=== PATIENT | male | born 1955 | race Caucasian/White ===

== ENCOUNTER → 2017-02-28 | Outpatient (CLI) | payer BC ==
[~2017-02-28] MED LIST: ACET-1770 PO; ASPI-1116 PO; ATOR40TA64 PO; CARV12.5 PO; CLOP75TA PO; FURO40TA5 PO; HYDR-4009 PO; LEVO100T12 PO; LOSA50TA2 PO; MINO100C43 PO; NITR0.4T SL; POTA10CA37 PO; SPIR25TA PO
[2017-02-28 07:05] LABS: ANION GAP 14 MEQ/L (5-15); BUN/CREATININE RATIO 11 RATIO (6-26); CALCIUM 9.6 MG/DL (8.4-10.2); CHLORIDE 97 MEQ/L (98-107); CO2 - CARBON DIOXIDE 26 MEQ/L (22-30); CREATININE 0.8 MG/DL (0.8-1.5); GLOMERULAR FILTRATION RATE 99; GLUCOSE 101 MG/DL (75-110); MAGNESIUM 1.9 MG/DL (1.6-2.3); POTASSIUM 4.4 MEQ/L (3.6-5); SODIUM 137 MEQ/L (134-144)
== END ==
LOC: LAB 06:42
PROVIDERS: ATTEND Internal Medicine Cardiovascular Disease
DX: I25.810 Atherosclerosis of coronary artery bypass graft(s) without angina pectoris (principal)
CPT/HCPCS: 80048; 83735

== ENCOUNTER 2017-08-07 13:25 | Observation (INO) ==
[2017-08-07] MEDS ORDERED: MIDAZOLAM 2mg/2ml INJECTION IVP ONE (13:36)
[2017-08-07] MEDS ORDERED: FentaNYL 100 MCG/2 ML INJECTION IVP ONE (13:36)
--- OUTSIDE RECORDS SUMMARY | 2017-08-07 13:41 | External Medical Summary | Continuity of Care Document ---
:1955 Demographics Phone Unavailable Preferred Language Unknown Marital Status Unknown Taoist Affiliation Unknown Race Unknown Ethnic Group Unknown Author Organization [facility] Allergies Medications Problems Procedures Results Encounters ACCT No. Visit Discharge Status Pt. Type Provider Facility Loc./Unit Complaint Date/Time [id number] 11/15/2016 ACT Unknown 0113 09:37:00 [id number] 12/16/2014 ACT Unknown 0204 08:58:00 [id number] 11/29/2014 ACT Unknown 0107 08:24:00 [id number] 11/29/2014 ACT Unknown 0113 07:55:00 [id number] 11/29/2014 ACT Unknown 0122 07:44:00
--- OUTSIDE RECORDS SUMMARY | 2017-08-07 13:41 | External Medical Summary | CCD ---
:1955 Author Name WALLACE HOYOS Address [address] [place] [phone] Care Team Providers Name Role Phone POLA VALLE Attending Physician Unavailable Vital Signs Unknown or Not Available. Allergies Allergy Code Allergy Type Reaction Status No Known Allergies 0 No known allergies Active Procedures Unknown or Not Available. History of Immunizations Unknown or Not Available. Problems Unknown or Not Available. Results COMP METABOLIC - Collect Date/Time: 10/30/2016 15:45 Test Name Code Test Result Test Units Test Ref Range GLUCOSE 98 mg/dL L=70 H=110 BUN 10 mg/dL L=7 H=18 CREATININE 1.36 mg/dL L=0.60 H=1.30 AGE 60 YEARS GFR 53.6 L=60.0 H=120 SODIUM 135 mmol/L L=136 H=145 POTASSIUM 3.8 mmol/L L=3.5 H=5.1 CHLORIDE 98 mmol/L L=98 H=107 CO2 29 mmol/L L=21 H=32 CALCIUM 9.6 mg/dL L=8.5 H=10.1 AST 19 U/L L=15 H=37 ALT 33 U/L L=12 H=78 ALKALINE PHOS 112 U/L L=46 H=116 TOTAL PROTEIN 7.5 g/dL L=6.4 H=8.2 ALBUMIN 4.1 g/dL L=3.4 H=5.0 TOTAL BILI 0.40 mg/dL L=0.00 H=1.00 LIPID PANEL - Collect Date/Time: 10/30/2016 15:45 Test Name Code Test Result Test Units Test Ref Range CHOLESTEROL 175 mg/dL L=0 H=200 TRIGLYCERIDES 105 mg/dL L=30 H=150 HDL 70 mg/dL L=40 H=60 LDL, CALC 84 mg/dL L=0 H=100 VLDL 21 mg/dL L=0 H=40 CHOL/HDL RISK 2.5 RATIO L=0.0 H=5.0 PT FASTING: ? N/A THYROXINE (T4) FREE - Collect Date/Time: 10/30/2016 15:45 Test Name Code Test Result Test Units Test Ref Range FT4 1.20 ng/dL L=0.76 H=1.46 TSH - Collect Date/Time: 10/30/2016 15:45 Test Name Code Test Result Test Units Test Ref Range TSH 1.22 uIU/mL L=0.36 H=3.74 CBC W/ DIFF - Collect Date/Time: 10/30/2016 15:45 Test Name Code Test Result Test Units Test Ref Range WBC 7.6 x10^3 L=4.8 H=10.8 RBC 4.22 x10^6 L=4.70 H=6.10 HEMOGLOBIN 13.4 g/dL L=14.0 H=18.0 HEMATOCRIT 39.9 % L=42.0 H=52.0 MCV 95 fL L=80 H=100 MCH 31.8 pg L=27.0 H=33.0 MCHC 33.6 g/dL L=33.0 H=37.0 RDW 13.2 % L=11.5 H=14.5 PLATELETS 308 x10^3 L=150 H=450 MPV 7.9 fL L=7.8 H=11.0 NEUTROPHILS 55.9 % L=40.0 H=80.0 LYMPHOCYTES 28.0 % L=20.0 H=45.0 MONOCYTES 13.9 % L=0.0 H=10.0 EOSINOPHILS 1.1 % L=0.0 H=5.0 BASOPHILS 1.1 % L=0.0 H=2.0 REFLEX MAN DIFF NO N/A UA AUTO W/ MICRO - Collect Date/Time: 10/30/2016 15:50 Test Name Code Test Result Test Units Test Ref Range COLOR Yellow N/A NORMAL: Yellow APPEARANCE Clear N/A NORMAL: Clear GLUCOSE Negative N/A NORMAL: Negative BILIRUBIN Negative N/A NORMAL: Negative KETONE Negative N/A NORMAL: Negative SPEC GRAVITY 1.010 N/A NORMAL: 1.005-1.030 BLOOD Negative N/A NORMAL: Negative PROTEIN Negative N/A NORMAL: Negative PH 7.0 N/A NORMAL: 5.0-8.0 UROBILINOGEN 0.2 N/A NORMAL: Negative NITRITE Negative N/A NORMAL: Negative LEUKOCYTES Negative N/A NORMAL: Negative MICRO RBC 0-2 N/A NORMAL: 0-2 MICRO WBC 0-2 N/A NORMAL: 0-2 BACTERIA None Seen N/A NORMAL: None-Trace EPI CELLS 0-5 N/A NORMAL: 0-15 MUCUS None Seen N/A NORMAL: None-Small AMORPHOUS None Seen N/A NORMAL: None Seen YEAST None Seen N/A NORMAL: None Seen CRYSTALS None Seen N/A NORMAL: None Seen CAST None Seen N/A NORMAL: None Seen URINE CULTURE? NO N/A Active Medications Unknown or Not Available. Medications Administered During Visit Unknown or Not Available. Encounters Encounter Diagnosis Diagnosis Code Start Date Essential (primary) hypertension I10 10/30/2016 Social History Smoking Status Code Start Date End Date Current every day [id number] smoker Patient Decision Aids Unknown or Not Available. Discharge Instructions You were admitted to [facility] on 10/30/2016 15:50 with a principal diagnosis of Essential (primary) hypertension You had the following tests done: CBC W/ DIFF COMP METABOLIC LIPID PANEL THYROXINE (T4) FREE TSH UA AUTO W/ MICRO You were discharged from [facility] on 10/30/2016 15:50 Should you have any questions prior to discharge, please contact a member of your healthcare team. If you have left the hospital and have any questions, please contact your primary care physician. Chief Complaint and Reason For Visit Chief Complaint Date of Onset LAB Function Status Unknown or Not Available. Plan of Care Unknown or Not Available. Referral/Transition of Care Unknown or Not Available.
[2017-08-07] MEDS ORDERED: DiltiaZEM 25 MG/5 ML INJECTION IVP ONE (13:56)
[2017-08-07] MEDS ORDERED: DiltiaZEM Drip 125 MG in NS 125 ML IV SCH (14:00)
[2017-08-07 14:55] VITALS: BMI 40.6
[2017-08-07] MEDS ORDERED: FUROSEMIDE 20 MG/2 ML INJECTION IVP ONE (15:04)
[2017-08-07] MEDS ORDERED: DIGOXIN 500 MCG/2 ML INJECTION IVP ONE ×2 (15:05)
--- NOTE | 2017-08-07 15:37 | XRay Report ---
Indication: aflutter PROCEDURE: XR chest 1V: Encounter: Initial Comparison: April 19, 2015 Findings: There is increased opacity in the right lower lobe. Left lung is clear. No pneumothorax or pleural effusion. Cardiac silhouette remains enlarged but unchanged. Prior sternotomy changes and left cardiac pacemaker defibrillator. Pulmonary vascularity is slightly prominent. Impression: Mild pulmonary edema. Possible superimposed atelectasis or pneumonia in the right lower lobe. .
[2017-08-07] MEDS: SALINE FLUSH 10ml SYRINGE IV PRN ×2 (15:48→17:26)
[2017-08-07] MEDS ORDERED: ADENOSINE 6mg/2ml INJECTION IVP ONE (16:20)
[2017-08-07] MEDS ORDERED: AMIODARONE 150 MG in NS 100 ML IV ONE (16:32)
[2017-08-07] MEDS ORDERED: AMIODARONE 900 MG in NS 500ml 500 ML IV SCH ×2 (16:33→22:35)
[2017-08-07] MEDS ORDERED: DIPHENHYDRAMINE PO PRN (16:56)
[2017-08-07] MEDS ORDERED: ACETAMINOPHEN PO PRN (16:56)
[2017-08-07] MEDS: CARVEDILOL 25 MG PO SCH (18:02)
[2017-08-07] MEDS: POTASSIUM CHLORIDE 10 MEQ PO SCH (18:02)
--- NOTE | 2017-08-07 19:41 | Consult Note ---
Consult Information - Data of Consult Consult date: 08/07/17 Requesting Physician: Rinku Melo MD Primary Care Provider: Nilsa Stone APRN Family Provider: Nilsa Stone APRN - Consult Narrative Reason for consult: cough, possible asthma History of present illness: The patient is a very pleasant 61-year-old male with history of coronary artery disease, cardiomyopathy with AICD and history of paroxysmal A. fib. He denies being on any new medications. He states that he has had a cough for approximately 3 or 4 weeks which occasionally has some whitish phlegm. He denies any difficulty with swallowing fluid, food or pills. He has some mild rhinorrhea but it doesn't seem out of the ordinary. He denies any sinus pain. He does not feel like he has a cold currently. He did notice a worsening in his symptoms over the past 2 days with increased cough and development of chest tightness. He also had orthopnea and needed to sleep in a recliner last night and still could not sleep well because of chest tightness and cough. He did not notice any lower extremity edema. He went to Dr. Melo's office this morning for an echocardiogram and was found to be in A. fib with rapid ventricular response. He was admitted to CCU and treated with diltiazem, digoxin and amiodarone and has converted to sinus rhythm. He is anticoagulated on ask. He does not take an CARLYLE inhibitor. He denies any GERD. The patient denies fevers or chills. He states he has always had a lot of sweating but that is normal for him. He has not had any weight changes. He states that his cough is better since converting to a sinus rhythm. He denies any pleuritic chest pain. He denies shortness of breath. Chest x-ray was obtained and revealed possible atelectasis versus pneumonia I was consulted by Dr. Melo for prolonged cough and possible pneumonia FORMERLY [facility], [facility]1983 Patient Stated Medical History Cataracts Yes: not removed yet Angina Yes Cardiac Arrhythmia Yes Congestive Heart Failure Yes Coronary Artery Disease Yes Hypertension Yes Myocardial Infarction Yes Pneumonia Yes Sleep Apnea No Other Musculoskeletal Yes: reynauds Cellulitis Yes: brown recluse bites June 2017 Medical History Updates: Coronary artery disease. CABG 3. Cardiomyopathy with AICD. Hyperlipidemia. Hypertension. Cataracts Surgical History: CABG 3 vessels. AICD placement Family History: Father with cardiomyopathy and AICD placement. Father also has diabetes - Social History Smoking status: Current some day smoker (1 or 2 cigarettes a month) Alcohol intake: current Alcohol intake frequency: 3 or more drinks per day (2-3 beers a day) Review of Systems Review of systems: Comprehensive review of systems is negative other than the above in history of present illness Medications Home Medications Medication Instructions Recorded Confirmed Type Acetaminophen/Diphenhydramine 2 tab PO HS PRN #0 tab 12/06/14 08/07/17 History [Acetaminophen Pm Caplet] Atorvastatin Calcium 1 tab PO HS #0 tab 12/06/14 08/07/17 History Furosemide 1 tab PO BID #0 tab 12/06/14 08/07/17 History Potassium Chloride 10 meq PO BIDWM #0 cap 12/06/14 08/07/17 History Ascorbic Acid 500 mg PO DAILY 08/07/17 08/07/17 History Carvedilol [Coreg] 1 tab PO BIDWM 08/07/17 08/07/17 History Dabigatran [Pradaxa] 1 cap PO BID 08/07/17 08/07/17 History Ferrous Sulfate 325 mg PO DAILY 08/07/17 08/07/17 History Levothyroxine Tab [Synthroid] 1 tab PO ACB 08/07/17 08/07/17 History SACUBITRIL/VALSARTAN 49/51mg 1 tab PO BID 08/07/17 08/07/17 History [ENTRESTO 49/51mg] Allergies Allergy/AdvReac Type Severity Reaction Status Date / Time No Known Allergies Allergy Verified 08/07/17 14:30 Exam Vital Signs: Temperature 98.4 F 08/07/17 15:59 Pulse Rate 88 08/07/17 17:30 Respiratory Rate 37 H 08/07/17 17:30 Blood Pressure 106/55 08/07/17 17:30 Pulse Oximetry 97 08/07/17 17:30 Height/Weight/BMI: Height 1.57 m Weight 100.9 kg Body Mass Index 40.6 Comments: Afebrile, heart rate in the 140s initially and since conversion to sinus rhythm is in the 80s O2 sat currently 100% on room air. He did require supplemental oxygen at 2 L for a short period of time. Respiratory rate is in the 20s to 30s GEN-alert, oriented, no acute distress. Has a frequent dry sounding cough. During my visit, he never appeared to have productive phlegm. HEENT-sclera anicteric, pupils equal, oropharynx is moist NECK-supple CV-regular rate and rhythm CHEST-clear to auscultation bilaterally ABD-soft, nontender and nondistended with positive bowel sounds -no Chan EXT-no edema NEURO-no focal deficits SKIN-complexion is fred, no diaphoresis Results - Labs CBC & Chem 7: 08/07/17 14:24 08/07/17 14:24 Microbiology Results: Neutrophils 77%, lymphs 14% Liver enzymes normal. Troponin normal. TSH normal. - Impressions Chest x-ray on my read and per radiology reveals mild pulmonary edema. Possible superimposed atelectasis or pneumonia in the right lower lobe. Assessment and Plan DVT Prophylaxis: Pradaxa Assessment and Plan: Impression Cough of 3 weeks' duration worsened past few days while he is likely had A. fib with RVR and mild pulmonary edema Atelectasis versus infiltrate/pneumonia in right lower lobe. He has not had fevers, significant phlegm, or pleuritic pain. Mild leukocytosis, possibly stress reaction with his A. fib with RVR A. fib with RVR, converted to sinus rhythm Tobaccoism (only 1 or 2 cigarettes a month) Coronary artery disease Old records show diabetes, but the patient denies being diabetic and blood sugars are normal Plan At this time, would monitor the patient off of antibiotics. Recheck CBC with manual differential tomorrow. See if symptoms improve with diuresis. Check a PA and lateral chest x-ray in the morning.. If the patient is febrile or has increased white count or worsening cough, would likely start antibiotics then. We'll obtain a sputum culture and viral respiratory panel. Check a pro-calcitonin in the morning. Check urine for strep pneumo and Legionella. Start use of incentive spirometer. Agree with diuresis. Start Tessalon Perles and guaifenesin for cough. Add steroid nasal spray. Tobacco cessation education. We'll follow along with you. Thank you for the consultation Hospital Course Summary Disclaimer: The visit summary below is not to be considered part of the above Progress Note.
[2017-08-07] MEDS ORDERED: ATORVASTATIN 40 MG PO SCH (21:00)
[2017-08-07] MEDS: FLUTICASONE NASAL SPRAY 50mcg EA NOSTRIL SCH (21:10)
[2017-08-07] MEDS: GUAIFENESIN LA 600 MG TABLET PO SCH (21:10)
[2017-08-07] MEDS: BENZONATATE 200 MG CAPSULE PO PRN (21:10)
[2017-08-07] MEDS: VALSARTAN PO SCH (21:13)
[2017-08-07] MEDS: DABIGATRAN 150 MG PO SCH (21:13)
[2017-08-07] MEDS: SACUBITRIL PO SCH (21:13)
[2017-08-07] MEDS: FUROSEMIDE 40 MG/4 ML INJECTION IVP SCH (21:16)
[2017-08-08] MEDS: FUROSEMIDE 40 MG/4 ML INJECTION IVP SCH ×2 (02:09→08:34)
[2017-08-08] MEDS ORDERED: **POM**LEVOTHYROXINE 100 MCG TABLET PO SCH (06:30)
[2017-08-08] MEDS ORDERED: FERROUS SULFATE 325 MG PO SCH (08:00)
--- NOTE | 2017-08-08 08:21 | Progress Note ---
Subjective: The patient states he is feeling better today. He states his breathing is better and his cough is much improved although not gone. He states he did have abdominal fullness yesterday but that is better today. He states he was able to lie almost flat last night and slept very well. He has not had a fever. He did have almost 6 L urine output since admission. Objective Vital signs: Temperature 97.1 F 08/08/17 04:40 Pulse Rate 73 08/08/17 07:00 Respiratory Rate 19 08/08/17 07:00 Blood Pressure 119/66 08/08/17 07:00 Pulse Oximetry 99 08/08/17 07:00 Height/Weight/BMI: Height 1.57 m Weight 100.9 kg Body Mass Index 40.6 Comments: I&O is -5 L GEN-alert, oriented, no acute distress. The patient does not cough at all while I'm in the room except once when I ask him to take a deep breath to examine his lungs. CV-regular rate and rhythm CHEST-clear to auscultation bilaterally, deep breath causes very minimal coughing today compared to last night ABD-soft, nontender with positive bowel sounds -no Chan EXT-no edema NEURO-no focal deficits Results - Labs CBC & Chem 7: 08/08/17 04:42 08/08/17 04:42 Labs: Bands 0 neutrophils 73% Viral respiratory panel was negative Microbiology Results: Microbiology 08/07/17 20:14 Sputum, Expectorated Sputum Culture - Preliminary Culture Initiated - Results Pending - Impressions Chest x-ray on my read shows decreased pulmonary edema and decrease in the size of the infiltrate versus atelectasis in the right lower lobe. Official report is pending. Assessment and Plan Assessment and Plan: 08/08/2017 Impression Cough of 3 weeks' duration worsened past few days while he has likely had A. fib with RVR and mild pulmonary edema Atelectasis versus infiltrate/pneumonia in right lower lobe. He has not had fevers, significant phlegm, or pleuritic pain. Chest x-ray improved today with diuresis. No antibiotics were initiated. Mild leukocytosis, possibly stress reaction with his A. fib with RVR-resolved ( no antibiotics) A. fib with RVR, converted to sinus rhythm Tobaccoism (only 1 or 2 cigarettes a month) Coronary artery disease Old records show diabetes, but the patient denies being diabetic and blood sugars are normal Plan Overall, the patient is feeling much better. On my read chest x-ray is improved. Radiology interpretation is pending. White count has normalized without antibiotics. Cough is markedly improved. I think most of his cough was likely secondary to pulmonary edema. I will have him remain off of antibiotics at this time. If he is discharged today, he could continue the nasal steroid spray and when necessary Tessalon Perles if he thinks these are helpful for the short-term. If cough is not improving, or gets worse, he should follow-up with his primary care provider. Hospital Course Summary Disclaimer: The visit summary below is not to be considered part of the above Progress Note.
[2017-08-08] MEDS: CARVEDILOL 25 MG PO SCH (08:31)
[2017-08-08] MEDS: POTASSIUM CHLORIDE 10 MEQ PO SCH (08:32)
[2017-08-08] MEDS: DABIGATRAN 150 MG PO SCH (08:33)
[2017-08-08] MEDS: FLUTICASONE NASAL SPRAY 50mcg EA NOSTRIL SCH (08:34)
[2017-08-08] MEDS: VALSARTAN PO SCH (08:38)
[2017-08-08] MEDS: SACUBITRIL PO SCH (08:38)
--- NOTE | 2017-08-08 08:45 | XRay Report ---
INDICATION: cough, possible pneumonia vs atelectasis PROCEDURE: CHEST 2-VIEWS UPRIGHT (PA & LAT) Encounter: Initial COMPARISON: August 07, 2017 FINDINGS: Aeration of the right lung has improved. No consolidative pneumonia. No pleural effusion or pneumothorax. Chronic interstitial markings in the left base. Heart size and mediastinal contours are stable. Left pacemaker defibrillator. Prior CABG. Impression: No acute cardiopulmonary disease. .
[2017-08-08] MEDS ORDERED: ASCORBIC ACID 500 MG PO SCH (09:00)
[2017-08-08] MEDS ORDERED: NON-FORMULARY MEDICATION 1 EACH EACH (Ferrous Sulfate [Ferrous Sulfate] 325 MG) PO SCH (09:00)
[2017-08-08] MEDS ORDERED: SPIRONOLACTONE 25 MG PO SCH (09:00)
[2017-08-08] MEDS: GUAIFENESIN LA 600 MG TABLET PO SCH (09:34)
[2017-08-08] MEDS: BENZONATATE 200 MG CAPSULE PO PRN (09:34)
[2017-08-08 12:35] VITALS: PULSE 70; TEMP 98
[2017-08-08] MEDS ORDERED: AMIODARONE 200 MG TABLET PO SCH (12:45)
[2017-08-08 13:12] VITALS: BP 91/53; RESP 20; O2SAT 97
--- NOTE | 2017-08-08 13:14 | Discharge Summary ---
<Radha Power M - Last Filed: 08/08/17 13:35> Discharge Information Date of admission: 08/07/17 13:35 Anticipated date of discharge: 08/08/17 Attending Physician: Rinku Melo MD Primary care physician: Nilsa Stone APRN Consults: 08/07/17 16:58 Physician Consult [CONS] Routine Consulting Provider: Petra Judd Reason For Exam: pneumonia Ordering Provider has Notified Geographic Information System Analyst: Yes - Laboratory Labs: 08/08/17 04:42 08/08/17 04:42 Laboratory Results - last 48 hr 08/07/17 08/07/17 08/07/17 14:24 14:24 20:53 WBC 12.5 H RBC 3.72 L Hgb 12.2 L Hct 36.1 L MCV 97.0 MCH 32.8 MCHC 33.8 RDW Std Deviation 43.1 Plt Count 287 MPV 10.6 Immature Gran % (Auto) 0.4 Neut % (Auto) 77.1 H Lymph % (Auto) 14.1 L [place] % (Auto) 8.0 Eos % (Auto) 0.2 Baso % (Auto) 0.2 Neut # (Auto) 9.7 H Lymph # (Auto) 1.8 [place] # (Auto) 1.0 H Eos # (Auto) 0.0 Baso # (Auto) 0.0 Abs Immat Gran (auto) 0.05 H Neutrophils % (Manual) Lymphocytes % (Manual) Monocytes % (Manual) Neutrophils # (Manual) Lymphocytes # (Manual) Monocytes # (Manual) RBC Morph Comment Turbidity < 20 Sodium 136 Potassium 4.4 Chloride 102 Carbon Dioxide 22 Anion Gap 12 BUN 13.0 Creatinine 0.7 L GFR Calculation 115 BUN/Creatinine Ratio 19 Glucose 92 Calculated Osmolality 262 Calcium 9.9 Magnesium 1.8 Total Bilirubin 0.60 Icterus Index < 2 AST 38 ALT 54 Alkaline Phosphatase 95 Troponin I 0.063 Total Protein 7.0 Albumin 4.2 Globulin 2.8 Albumin/Globulin Ratio 1.5 TSH 1.73 Specimen Hemolysis < 15 Adenovirus (PCR) Negative B.parapertussis DNA PCR Negative C. pneumoniae DNA (PCR) Negative Coronavirus OC43 (PCR) Negative Coronavirus HKU1 (PCR) Negative Coronavirus 229E (PCR) Negative Coronavirus NL63 (PCR) Negative Human Metapneumovir PCR Negative Influenza Type A (PCR) Negative Influenza Type B (PCR) Negative M. pneumoniae (PCR) Negative Parainfluenza 1 (PCR) Negative Parainfluenza 2 (PCR) Negative Parainfluenza 3 (PCR) Negative Parainfluenza 4 (PCR) Negative RSV (PCR) Negative Entero/Rhino (PCR) Negative 08/08/17 08/08/17 08/08/17 04:42 04:42 06:45 WBC 8.6 RBC 3.83 L Hgb 12.6 L Hct 37.3 L MCV 97.4 MCH 32.9 MCHC 33.8 RDW Std Deviation 44.4 Plt Count 273 MPV 10.5 Immature Gran % (Auto) Neut % (Auto) Lymph % (Auto) [place] % (Auto) Eos % (Auto) Baso % (Auto) Neut # (Auto) Lymph # (Auto) [place] # (Auto) Eos # (Auto) Baso # (Auto) Abs Immat Gran (auto) Neutrophils % (Manual) 73.0 H Lymphocytes % (Manual) 19.0 L Monocytes % (Manual) 8.0 Neutrophils # (Manual) 6.3 Lymphocytes # (Manual) 1.6 Monocytes # (Manual) 0.7 RBC Morph Comment Normal Turbidity < 20 Sodium 138 Potassium 3.5 L D Chloride 97 L Carbon Dioxide 30 D Anion Gap 11 BUN 13.0 Creatinine 0.9 D GFR Calculation 86 BUN/Creatinine Ratio 14 Glucose 98 Calculated Osmolality 266 Calcium 9.6 Magnesium 1.8 Total Bilirubin Icterus Index < 2 AST ALT Alkaline Phosphatase Troponin I Total Protein Albumin Globulin Albumin/Globulin Ratio TSH Specimen Hemolysis < 15 Adenovirus (PCR) B.parapertussis DNA PCR C. pneumoniae DNA (PCR) Coronavirus OC43 (PCR) Coronavirus HKU1 (PCR) Coronavirus 229E (PCR) Coronavirus NL63 (PCR) Human Metapneumovir PCR Influenza Type A (PCR) Influenza Type B (PCR) M. pneumoniae (PCR) Parainfluenza 1 (PCR) Parainfluenza 2 (PCR) Parainfluenza 3 (PCR) Parainfluenza 4 (PCR) RSV (PCR) Entero/Rhino (PCR) - Microbiology Microbiology 08/07/17 20:14 Sputum, Expectorated Gram Stain - Final 08/07/17 20:14 Sputum, Expectorated Sputum Culture - Preliminary Culture Initiated - Results Pending - Radiology Radiology: Date of Exam: 08/08/17 Ordering Provider: Petra Judd MD Type of Exam(s): XR chest 2V Reason for Exam(s): cough, possible pneumonia vs atelectasis INDICATION: cough, possible pneumonia vs atelectasis PROCEDURE: CHEST 2-VIEWS UPRIGHT (PA & LAT) Encounter: Initial COMPARISON: August 07, 2017 FINDINGS: Aeration of the right lung has improved. No consolidative pneumonia. No pleural effusion or pneumothorax. Chronic interstitial markings in the left base. Heart size and mediastinal contours are stable. Left pacemaker defibrillator. Prior CABG. Impression: No acute cardiopulmonary disease. Date of Exam: 08/07/17 Ordering Provider: Radha Power APRN Type of Exam(s): XR chest 1V Reason for Exam(s): aflutter Indication: aflutter PROCEDURE: XR chest 1V: Encounter: Initial Comparison: April 19, 2015 Findings: There is increased opacity in the right lower lobe. Left lung is clear. No pneumothorax or pleural effusion. Cardiac silhouette remains enlarged but unchanged. Prior sternotomy changes and left cardiac pacemaker defibrillator. Pulmonary vascularity is slightly prominent. Impression: Mild pulmonary edema. Possible superimposed atelectasis or pneumonia in the right lower lobe. History of Present Illness HPI: Trip is a 61 year old male who is well known to Dr. Melo with a history of dilated cardiomyopathy, acute on chronic systolic heart failure, paroxysmal atrial fibrillation, non-rheumatic mitral valve insufficiency, CAD with CABG, HTN and HLD who was seen in clinic yesterday and reported cough lasting the last 4 weeks, exertional dyspnea, orthopnea and fatigue and was found to be in Atrial Flutter, rate 130. He was admitted to CCU for DCCV and AAT, as well as diuresis for acute on chronic systolic heart failure. He is currently taking Pradaxa 150mg BID. Hospital Course This is a general summary of the patient's hospital course. For more details refer to the complete medical record. Hospital course: Patient was given adenosine 12mg to slow rate for rhythm verification, informed consent for DCCV and self converted before sedation was given. He was started on Amiodarone IV bolus and drip and later changed to oral amiodarone. Time spent with patient: 25 - 35 minutes DVT Prophylaxis: Pradaxa Exam Vital signs: Temperature 98.0 F 08/08/17 11:00 Pulse Rate 70 08/08/17 11:00 Respiratory Rate 21 08/08/17 11:00 Blood Pressure 95/58 08/08/17 11:00 Pulse Oximetry 99 08/08/17 11:00 - Constitutional no acute distress Results 08/08/17 04:42 08/08/17 04:42 Cardiac Enzymes 08/07/17 Range/Units 14:24 AST 38 (17-59) U/L Troponin I 0.063 (0-0.12) ng/ml CBC 08/07/17 08/08/17 Range/Units 14:24 04:42 WBC 12.5 H 8.6 (4.5-11.0) T/MM3 RBC 3.72 L 3.83 L (4.50-5.90) M/MM3 Hgb 12.2 L 12.6 L (13.5-17.5) GM/DL Hct 36.1 L 37.3 L (41-53) % Plt Count 287 273 (130-400) T/MM3 Neut # (Auto) 9.7 H (1.8-7.7) T/MM3 Lymph # (Auto) 1.8 (1-4.8) T/MM3 [place] # (Auto) 1.0 H (0-0.8) T/MM3 Eos # (Auto) 0.0 (0-0.5) T/MM3 Baso # (Auto) 0.0 (0-0.2) T/MM3 Comprehensive Metabolic Panel 08/07/17 08/08/17 Range/Units 14:24 04:42 Sodium 136 138 (134-144) MEQ/L Potassium 4.4 3.5 L D (3.6-5) MEQ/L Chloride 102 97 L (98-107) MEQ/L Carbon Dioxide 22 30 D (22-30) MEQ/L BUN 13.0 13.0 (9-20) MG/DL Creatinine 0.7 L 0.9 D (0.8-1.5) MG/DL Glucose 92 98 (75-110) MG/DL Calcium 9.9 9.6 (8.4-10.2) MG/DL AST 38 (17-59) U/L ALT 54 (21-72) U/L Alkaline Phosphatase 95 (38-126) U/L Total Protein 7.0 (6.3-8.2) G/DL Albumin 4.2 (3.5-5.0) G/DL Intake and Output 08/07/17 08/08/17 08/08/17 22:59 06:59 14:59 Intake Total 587.25 / 587.25 204.424 / 204.424 310 / 310 Output Total 4325 / 4325 1550 / 1550 550 / 550 Balance -3737.75 / -3737.75 -1345.576 / -1345.576 -240 / -240 Intake: IV 227.25 / 227.25 204.424 / 204.424 Amiodarone 150 mg In Ns 103 / 103 100 ml @ 618 mls/hr IV O ONE Rx#:[id number] Amiodarone 900 mg In NS 204.424 / 204.424 500ml 500 ml @ 1 MG/MIN 33.33 mls/hr IV .Q15H1M DAILY Rx#:[id number] DiltiaZEM Drip 125 mg In 124.25 / 124.25 Ns 125 ml @ 0 mls/hr IV . Q0M DAILY Rx#:[id number] Oral 360 / 360 310 / 310 Output: Urine 4325 / 4325 1550 / 1550 550 / 550 Other: Urine Appearance Clear Clear Urine Color Yellow Yellow Stool Consistency Liquid Size of Bowel Movement Moderate # Bowel Movements 1 Discharge Plan - Med Rec/Dispo Referrals/Follow Up: Rinku Melo MD [Physician] - 09/04/17 9:50 am [facility] Instructions: [facility] Congestive Heart Failure, A-fib (Atrial Fibrillation) (DC) Prescriptions: New Amiodarone [Pacerone] 200 mg PO DAILY #30 tab Continue Spironolactone [Aldactone] 25 mg PO DAILY #30 tab SACUBITRIL/VALSARTAN 49/51mg [ENTRESTO 49/51mg] 1 tab PO BID Carvedilol [Coreg] 1 tab PO BIDWM Ascorbic Acid 500 mg PO DAILY Atorvastatin Calcium 1 tab PO HS #0 tab Potassium Chloride 10 meq PO BIDWM #0 cap Furosemide 1 tab PO BID #0 tab Acetaminophen/Diphenhydramine [Acetaminophen Pm Caplet] 2 tab PO HS PRN #0 tab PRN Reason: INSOMNIA Levothyroxine Tab [Synthroid] 1 tab PO ACB Dabigatran [Pradaxa] 1 cap PO BID Ferrous Sulfate 325 mg PO DAILY - Disposition 01 Discharged Home, Self-Care <MarshaaditiRinku - Last Filed: 08/11/17 13:26> Discharge Information Date of admission: 08/07/17 13:35 Attending Physician: Rinku Melo MD Primary care physician: Nilsa Stone APRN Consults: 08/07/17 16:58 Physician Consult [CONS] Routine Consulting Provider: Petra Judd Reason For Exam: pneumonia Ordering Provider has Notified Geographic Information System Analyst: Yes - Laboratory Labs: 08/08/17 04:42 08/08/17 04:42 - Microbiology Microbiology 08/07/17 20:14 Sputum, Expectorated Gram Stain - Final 08/07/17 20:14 Sputum, Expectorated Sputum Culture - Final Normal Respiratory Mellissa Present 08/07/17 21:40 Urine Legionella Urinary Antigen - Final 08/07/17 21:40 Urine Streptococcus pneumoniae Antigen (M - Final Hospital Course This is a general summary of the patient's hospital course. For more details refer to the complete medical record. Exam Vital signs: Temperature 98.0 F 08/08/17 11:00 Pulse Rate 70 08/08/17 13:00 Respiratory Rate 20 08/08/17 13:00 Blood Pressure 91/53 08/08/17 13:00 Pulse Oximetry 97 08/08/17 13:00 Results 08/08/17 04:42 08/08/17 04:42 Discharge Plan - Med Rec/Dispo - Attestation Attestation Narrative: 08/11/17 13:26 Recommendation After examining the patient I agree with the above assessment. I am involved in the formulation of the patient's plan of care.
== END 2017-08-08 14:20 | disposition home or self-care (01) ==
LOC: CCU
PROVIDERS: ADMIT Internal Medicine Cardiovascular Disease; ATTEND Internal Medicine Cardiovascular Disease

== ENCOUNTER 2017-08-23 20:56 | Inpatient (IN) ==
--- NOTE | 2017-08-23 21:21 | Emergency Department Report ---
Cardiac General HPI - General Chief Complaint: Dizziness <Margarita Stone - 08/23/17 21:21> Stated Complaint: Defibrillator went off <Margarita Stone - 08/23/17 21:21> Time Seen by Provider: 08/23/17 21:21 <Margarita Stone - 08/23/17 21:21> Source: patient <Margarita Stone - 08/23/17 21:42> Mode of arrival: ambulatory <Margarita Stone - 08/23/17 21:42> Limitations: no limitations <Margarita Stone - 08/23/17 21:42> - History of Present Illness HPI narrative: 61 YO M presents to ED with complaint of defibrillator going off at home this evening around 8pm. Patient says prior to defibrillator going off patient says he felt light he might pass out and was SOA. Patient says that he feels fine now. Denies any associated CP, nausea or diaphoresis. Patient says that he thinks the defibrillator went off this morning and also on . Patient's drawer waxer is Dr. Melo. <Margarita Stone - 08/23/17 21:42> Occurred At: home <Margarita Stone - 08/23/17 21:42> - Related Data Home Medications Medication Instructions Recorded Confirmed Acetaminophen/Diphenhydramine 2 tab PO HS PRN #0 tab 12/06/14 08/24/17 [Acetaminophen Pm Caplet] Atorvastatin Calcium 1 tab PO HS #0 tab 12/06/14 08/24/17 Furosemide 1 tab PO BID #0 tab 12/06/14 08/24/17 Potassium Chloride 10 meq PO BIDWM #0 cap 12/06/14 08/24/17 Ascorbic Acid 500 mg PO DAILY 08/07/17 08/24/17 Carvedilol [Coreg] 1 tab PO BIDWM 08/07/17 08/24/17 Dabigatran [Pradaxa] 1 cap PO BID 08/07/17 08/24/17 Ferrous Sulfate 325 mg PO DAILY 08/07/17 08/24/17 Levothyroxine Tab [Synthroid] 1 tab PO ACB 08/07/17 08/24/17 SACUBITRIL/VALSARTAN 49/51mg 1 tab PO BID 08/07/17 08/24/17 [ENTRESTO 49/51mg] Previous Rx's Medication Instructions Recorded Spironolactone [Aldactone] 25 mg PO DAILY #30 tab 12/09/14 Amiodarone [Pacerone] 200 mg PO DAILY #30 tab 08/08/17 <Margarita Stone - 08/23/17 21:21> Allergies Allergy/AdvReac Type Severity Reaction Status Date / Time No Known Allergies Allergy Verified 08/23/17 21:04 <Margarita Stone - 08/23/17 21:21> Review of Systems All systems: reviewed and negative except as stated <Margarita Stone - 21:42> Constitutional: Reports: as per HPI, other (felt like he might pass out) < Margarita Stone 08/23/17 21:42> Respiratory: Reports: as per HPI, dyspnea <Margarita Stone 08/23/17 21:42> [facility] Patient Stated Medical History Cataracts Yes: not removed yet Angina Yes Cardiac Arrhythmia Yes Congestive Heart Failure Yes Coronary Artery Disease Yes Hypertension Yes Myocardial Infarction Yes Pneumonia Yes Sleep Apnea No Other Musculoskeletal Yes: reynauds Cellulitis Yes: brown recluse bites June 2017 Ischemic cardiomyopathy <Margarita Stone 08/24/17 18:39> Medical History Updates: Coronary artery disease. CABG 3. Cardiomyopathy with AICD. Hyperlipidemia. Hypertension. Cataracts <Margarita Stone 21:21> Surgical History: CABG 3 vessels. AICD placement <Margarita Stone 21:21> - Social History Smoking status: Current some day smoker (1 or 2 cigarettes a month) <Margarita Stone 08/23/17 21:21> Household members: spouse <Margarita Stone 08/23/17 21:42> Physical Exam - Limitations Limitations: no limitations <aMrgarita Stone 08/23/17 21:42> - General General appearance: alert, in no apparent distress <Margarita Stone 21:42> - Normal Exams: Head:: Normocephalic without trauma <Margarita Stone 08/23/17 21:42> Eyes:: No scleral icterus, irritation <Margarita Stone 08/23/17 21:42> ENMT:: No facial trauma, nasal exudates <Margarita Stone - 08/23/17 21:42> Chest/Respirations:: Clear all javier, with good airflow, and symmetry bilaterally <Margarita Stone - 08/23/17 21:42> Cardiovascular:: Regular rate and rhythm <Margarita Stone - 08/23/17 22:25> Musculoskeletal:: No tenderness, or deformity noted, good range of motion, all extremities <Margarita Stone 08/23/17 22:25> Integumentary:: No rashes <Margarita Stone 08/23/17 22:25> Neurological:: Patient is alert, and oriented, motor/sensory/cerebellar, exams w /o gross deficits, to observation <Margarita Stone 08/23/17 22:25> Psychiatric:: Patient exhibits, appropriate attention, emotion and affect < Margarita Stone 08/23/17 22:25> - Neck Neck exam: Present: trachea midline <Margarita Stone 08/23/17 22:25> Course - Consultations Consultation #1: I discussed patient's HPI, EKG and report from [employer] that defibrillator has gone off 3 times since early on the . Dr. Melo would like patient admitted on Amiodarone drip. <Margarita Stone - 08/23/17 22:25> Consultation #2: [employer] claim representative discussed interrogation of patient defibrillator. Patient did have a paced tachyarrhythmia 3 different time since early 08-24. Last episode 8pm tonight. <Margarita Stone - 08/24/17 18:39> Vital Signs Temperature 97.6 F 08/23/17 21:00 Pulse Rate 82 08/23/17 21:00 Respiratory Rate 18 08/23/17 21:00 Blood Pressure 136/70 08/23/17 21:00 Pulse Oximetry 96 08/23/17 21:00 Temperature 98.5 F 08/24/17 15:46 Pulse Rate 64 08/24/17 13:00 Respiratory Rate 20 08/24/17 13:00 Blood Pressure 123/74 08/24/17 13:00 Pulse Oximetry 98 08/24/17 13:00 <Graham Baker - 08/23/17 21:26> Vital Signs Temperature 97.6 F 08/23/17 21:00 Pulse Rate 82 08/23/17 21:00 Respiratory Rate 18 08/23/17 21:00 Blood Pressure 136/70 08/23/17 21:00 Pulse Oximetry 96 08/23/17 21:00 Temperature 98.5 F 08/24/17 15:46 Pulse Rate 64 08/24/17 13:00 Respiratory Rate 20 08/24/17 13:00 Blood Pressure 123/74 08/24/17 13:00 Pulse Oximetry 98 08/24/17 13:00 <Margarita Stone - 08/23/17 21:42> Cardiac General - [facility] Narrative Medical decision making narrative: Labs are unremarkable. Patient appears to have had defibrillator go off 3 more times in ED indicating a ventricular tachycardia. I discussed conversation I had with Dr. Melo with patient, and need for admission. <Margarita Stone - 08/24/17 18:39> - Differential Diagnosis Differential diagnosis: Likely: palpitations, sinus tachycardia, artial fibrillation, ventricular premature beats, supraventricular tachycardia, ventricular tachycardia <Margarita Stone - 08/23/17 22:25> - Medical Records Attestation: I reviewed the patient's medical records. <Margarita Stone - 22:25> - Lab Data Attestation: I reviewed the patient's lab results. <Margarita Stone - 18:05> Result diagrams: 08/24/17 04:01 08/24/17 04:01 <Margarita Stone - 08/23/17 21:21> Lab Results 08/23/17 08/23/17 Range/Units 22:15 22:15 WBC 8.8 (4.5-11.0) T/MM3 RBC 4.04 L (4.50-5.90) M/MM3 Hgb 13.4 L (13.5-17.5) GM/DL Hct 39.2 L (41-53) % MCV 97.0 (80-100) UM3 MCH 33.2 (26-34) UUG MCHC 34.2 (31-37) GM/DL RDW Std Deviation 44.4 (36.9-50.2) FL Plt Count 310 (130-400) T/MM3 MPV 10.0 (9.4-12.4) UM3 Immature Gran % (Auto) 0.2 (0.0-0.5) % Neut % (Auto) 68.9 H (33-66) % Lymph % (Auto) 23.2 (23-45) % [place] % (Auto) 6.6 (0-9.0) % Eos % (Auto) 0.9 (0-4) % Baso % (Auto) 0.2 (0-2) % Neut # (Auto) 6.1 (1.8-7.7) T/MM3 Lymph # (Auto) 2.1 (1-4.8) T/MM3 [place] # (Auto) 0.6 (0-0.8) T/MM3 Eos # (Auto) 0.1 (0-0.5) T/MM3 Baso # (Auto) 0.0 (0-0.2) T/MM3 Abs Immat Gran (auto) 0.02 (0.00-0.03) T/MM3 Turbidity < 20 (0-20) Sodium 140 (134-144) MEQ/L Potassium 3.6 (3.6-5) MEQ/L Chloride 104 (98-107) MEQ/L Carbon Dioxide 22 (22-30) MEQ/L Anion Gap 14 (5-15) MEQ/L BUN 12.0 (9-20) MG/DL Creatinine 0.8 (0.8-1.5) MG/DL GFR Calculation 99 BUN/Creatinine Ratio 15 (6-26) RATIO Glucose 96 (75-110) MG/DL Calculated Osmolality 269 (261-280) MOSM/KG Calcium 9.2 (8.4-10.2) MG/DL Magnesium 1.9 (1.6-2.3) MG/DL Icterus Index < 2 (0-7) Troponin I 0.015 (0-0.12) ng/ml B-Natriuretic Peptide 616 H (0-175) pg/mL Specimen Hemolysis < 15 (0-25) <MarchGraham M - 08/23/17 21:26> Lab Results 08/23/17 08/23/17 Range/Units 22:15 22:15 WBC 8.8 (4.5-11.0) T/MM3 RBC 4.04 L (4.50-5.90) M/MM3 Hgb 13.4 L (13.5-17.5) GM/DL Hct 39.2 L (41-53) % MCV 97.0 (80-100) UM3 MCH 33.2 (26-34) UUG MCHC 34.2 (31-37) GM/DL RDW Std Deviation 44.4 (36.9-50.2) FL Plt Count 310 (130-400) T/MM3 MPV 10.0 (9.4-12.4) UM3 Immature Gran % (Auto) 0.2 (0.0-0.5) % Neut % (Auto) 68.9 H (33-66) % Lymph % (Auto) 23.2 (23-45) % [place] % (Auto) 6.6 (0-9.0) % Eos % (Auto) 0.9 (0-4) % Baso % (Auto) 0.2 (0-2) % Neut # (Auto) 6.1 (1.8-7.7) T/MM3 Lymph # (Auto) 2.1 (1-4.8) T/MM3 [place] # (Auto) 0.6 (0-0.8) T/MM3 Eos # (Auto) 0.1 (0-0.5) T/MM3 Baso # (Auto) 0.0 (0-0.2) T/MM3 Abs Immat Gran (auto) 0.02 (0.00-0.03) T/MM3 Turbidity < 20 (0-20) Sodium 140 (134-144) MEQ/L Potassium 3.6 (3.6-5) MEQ/L Chloride 104 (98-107) MEQ/L Carbon Dioxide 22 (22-30) MEQ/L Anion Gap 14 (5-15) MEQ/L BUN 12.0 (9-20) MG/DL Creatinine 0.8 (0.8-1.5) MG/DL GFR Calculation 99 BUN/Creatinine Ratio 15 (6-26) RATIO Glucose 96 (75-110) MG/DL Calculated Osmolality 269 (261-280) MOSM/KG Calcium 9.2 (8.4-10.2) MG/DL Magnesium 1.9 (1.6-2.3) MG/DL Icterus Index < 2 (0-7) Troponin I 0.015 (0-0.12) ng/ml B-Natriuretic Peptide 616 H (0-175) pg/mL Specimen Hemolysis < 15 (0-25) <Margarita Stone 08/23/17 21:42> - EKG Data EKG #1 EKG attestation: Yes: I reviewed and interpreted this EKG. <March,[facility] 21:28> Rhythm: other (Paced) <[facility] 08/23/17 21:28> When compared to previous EKG there are: changes noted (Every beat is paced.) <March,[facility] 08/23/17 21:28> Critical Care Time Critical Care Time: Yes <Margarita Stone 08/24/17 18:39> Total Critical Care Time: 39 <Margarita Stone 08/24/17 18:39> Attestation: The high probability of a clinically significant, sudden or life threatening deterioration of the cardiovascular system, required my full and direct attention, intervention and personal management. The aggregate critical care time was 39 minutes. This time is in addition to time spent performing reported procedures but includes the following: [x] Data Review and interpretation [x] Patient assessment and monitoring of vital signs [x] Documentation [x] Medication orders and management <Margarita Stone 08/24/17 18:39> Disposition Clinical Impression: Ventricular tachycardia <Margarita Stone 08/24/17 18:05> Disposition: 02 To [facility] <Margarita Stone 08/23/17 22:25> Condition: Stable <Margarita Stone 08/24/17 18:05> Instructions: <Margarita Stone 08/23/17 21:21> Prescriptions: No Action Spironolactone [Aldactone] 25 mg PO DAILY #30 tab SACUBITRIL/VALSARTAN 49/51mg [ENTRESTO 49/51mg] 1 tab PO BID Carvedilol [Coreg] 1 tab PO BIDWM Ascorbic Acid 500 mg PO DAILY Atorvastatin Calcium 1 tab PO HS #0 tab Potassium Chloride 10 meq PO BIDWM #0 cap Furosemide 1 tab PO BID #0 tab Acetaminophen/Diphenhydramine [Acetaminophen Pm Caplet] 2 tab PO HS PRN #0 tab PRN Reason: INSOMNIA Levothyroxine Tab [Synthroid] 1 tab PO ACB Dabigatran [Pradaxa] 1 cap PO BID Ferrous Sulfate 325 mg PO DAILY Amiodarone [Pacerone] 200 mg PO DAILY #30 tab <Margarita Stone - 08/23/17 22:25> Referrals: Nilsa Stone APRN [Family Provider] - <Margarita Stone - 21:21> Forms: <Margarita Stone - 08/23/17 21:21> - Seen By: midlevel <Margarita Stone - 08/23/17 22:25>
[2017-08-23] MEDS ORDERED: SALINE FLUSH 10ml SYRINGE IVF PRN (21:34)
[2017-08-23] MEDS ORDERED: AMIODARONE 150 MG in NS 100 ML IV ONE (22:06)
[2017-08-23] MEDS ORDERED: AMIODARONE 900 MG in NS 500ml 500 ML IV SCH (22:08)
[2017-08-23 23:51] VITALS: BMI 33.0
[2017-08-24] MEDS: AMIODARONE 900 MG in NS 500ml 500 ML IV SCH (05:15)
[2017-08-24] MEDS ORDERED: ACETAMINOPHEN PO PRN (09:05)
[2017-08-24] MEDS ORDERED: DIPHENHYDRAMINE PO PRN (09:05)
[2017-08-24] MEDS: ASCORBIC ACID 500 MG PO SCH (10:17)
[2017-08-24] MEDS: POM AMIODARONE 200 MG TABLET PO SCH (10:17)
[2017-08-24] MEDS: POM CARVEDILOL 25 MG TABLET PO SCH ×2 (10:18→18:41)
[2017-08-24] MEDS: POM FUROSEMIDE 40 MG TABLET PO SCH ×2 (10:19→18:41)
[2017-08-24] MEDS: FERROUS SULFATE 324 MG PO SCH (10:19)
[2017-08-24] MEDS: POTASSIUM CHLORIDE 10 MEQ PO SCH ×2 (10:20→18:40)
[2017-08-24] MEDS: POM SACUBITRIL/VALSARTAN 49/51mg TABLET PO SCH ×2 (10:20→20:33)
[2017-08-24] MEDS: POM SPIRONOLACTONE 25 MG TABLET PO SCH (10:21)
--- NOTE | 2017-08-24 11:14 | Cardiology History & Physical ---
History of Present Illness Chief complaint: near syncope HPI: Trip is a 61 year old male who is well known to Dr. Melo with a history of ischemic cardiomyopathy with Medtronic BI-V/D, CAD with CABG, PAF, nonrheumatic mitral valve insufficiency, HTN and HLD who presented to ED with complaint of defibrillator going off at home last evening around 8pm. He reports that prior to defibrillator going off, he felt light he might pass out and was SOA. Denied any associated CP, nausea or diaphoresis. He reports that he thinks the defibrillator went off yesterday morning and also on . He was admitted to CCU in the care of Dr. Melo. He is seen this morning in CCU. He denies chest pain or pressure, palpitations, dyspnea, dizziness or lightheadedness. Review of Systems - Constitutional Constitutional: Absent: chills, fatigue, fever(s), lethargy - EENMT Eyes: Absent: change in vision Balance: Absent: vertigo Mouth/Throat: Absent: sore throat - Cardiovascular Cardiovascular: Present: chest pain (last eveing), syncope (near). Absent: palpitations, dyspnea on exertion, edema Vascular: Absent: pedal edema - Respiratory Respiratory: Absent: cough, dyspnea - Gastrointestinal Gastrointestinal: Absent: abdominal pain, diarrhea, nausea, vomiting - Genitourinary Genitourinary: Absent: dysuria - Integumentary/Breasts Integumentary: Absent: rash - Neurological Neurological: Present: dizziness (last evening) - Endocrine Endocrine: Absent: palpitations PFSH Patient Stated Medical History Cataracts Yes: not removed yet Angina Yes Cardiac Arrhythmia Yes Congestive Heart Failure Yes Coronary Artery Disease Yes Hypertension Yes Myocardial Infarction Yes: STEMI @ 43yoa Pneumonia Yes Sleep Apnea No Other Musculoskeletal Yes: reynauds Cellulitis Yes: brown recluse bites June 2017 Medical History Updates: Coronary artery disease. CABG 3. Cardiomyopathy with AICD. Hyperlipidemia. Hypertension. Cataracts Surgical History: CABG 3 vessels. AICD placement Family History: Father- [place] at 52 Brother- HTN - Social History Smoking status: Current some day smoker Packs per day: 0.5 Housing: house Household members: spouse Current occupational status: employed Current residence: Apartment/Private Home Medications Home Medications Medication Instructions Recorded Confirmed Type Acetaminophen/Diphenhydramine 2 tab PO HS PRN #0 tab 02/03/15 10/22/17 History [Acetaminophen Pm Caplet] Atorvastatin Calcium 1 tab PO HS #0 tab 12/06/14 08/24/17 History Furosemide 1 tab PO BID #0 tab 12/06/14 08/24/17 History Potassium Chloride 10 meq PO BIDWM #0 cap 12/06/14 08/24/17 History Ascorbic Acid 500 mg PO DAILY 08/07/17 08/24/17 History Carvedilol [Coreg] 1 tab PO BIDWM 08/07/17 08/24/17 History Dabigatran [Pradaxa] 1 cap PO BID 08/07/17 08/24/17 History Ferrous Sulfate 325 mg PO DAILY 08/07/17 08/24/17 History Levothyroxine Tab [Synthroid] 1 tab PO ACB 08/07/17 08/24/17 History SACUBITRIL/VALSARTAN 49/51mg 1 tab PO BID 08/07/17 08/24/17 History [ENTRESTO 49/51mg] Allergies Allergy/AdvReac Type Severity Reaction Status Date / Time No Known Allergies Allergy Verified 08/23/17 21:04 Exam Vital signs: Temperature 98 F 08/24/17 04:00 Pulse Rate 69 08/24/17 04:29 Respiratory Rate 26 H 08/24/17 04:00 Blood Pressure 110/55 08/24/17 03:30 Pulse Oximetry 98 08/24/17 04:00 - Constitutional no acute distress, well nourished, cooperative - Routine HEENT Exam Head: Present: normocephalic ENT: Present: mucous membranes moist - Routine Neck Exam Absent: JVD, carotid bruit - Routine Chest/Breast/Axilla Exam Chest wall: Absent: tenderness - Routine Respiratory Exam Present: CTA bilaterally. Absent: rales, wheezes - Routine Cardiovascular Exam Present: RRR (paced), no murmur. Absent: JVD - Routine Abdominal Exam Present: soft, normoactive bowel sounds - Routine Extremities Exam Present: no edema - Routine Skin Exam Present: intact, dry, warm - Routine Neurological Exam Present: alert, oriented X3 - Routine Psychiatric Exam Present: normal affect, normal thought process Results 08/26/17 07:36 08/26/17 07:36 Cardiac Enzymes 08/24/17 Range/Units 04:01 AST 24 (17-59) U/L Troponin I 0.015 (0-0.12) ng/ml CBC 08/24/17 Range/Units 04:01 WBC 8.5 (4.5-11.0) T/MM3 RBC 3.95 L (4.50-5.90) M/MM3 Hgb 13.0 L (13.5-17.5) GM/DL Hct 38.5 L (41-53) % Plt Count 297 (130-400) T/MM3 Neut # (Auto) 5.8 (1.8-7.7) T/MM3 Lymph # (Auto) 1.9 (1-4.8) T/MM3 Mcleod # (Auto) 0.7 (0-0.8) T/MM3 Eos # (Auto) 0.1 (0-0.5) T/MM3 Baso # (Auto) 0.0 (0-0.2) T/MM3 Comprehensive Metabolic Panel 08/24/17 Range/Units 04:01 Sodium 140 (134-144) MEQ/L Potassium 4.0 (3.6-5) MEQ/L Chloride 104 (98-107) MEQ/L Carbon Dioxide 25 (22-30) MEQ/L BUN 12.0 (9-20) MG/DL Creatinine 0.8 (0.8-1.5) MG/DL Glucose 94 (75-110) MG/DL Calcium 9.0 (8.4-10.2) MG/DL AST 24 (17-59) U/L ALT 37 (21-72) U/L Alkaline Phosphatase 93 (38-126) U/L Total Protein 7.4 (6.3-8.2) G/DL Albumin 4.2 (3.5-5.0) G/DL Intake and Output 08/23/17 08/24/17 08/24/17 22:59 06:59 14:59 Intake Total 503 / 503 Output Total 1650 / 1650 Balance -1147 / -1147 Intake: IV 103 / 103 Amiodarone 150 mg In Ns 103 / 103 100 ml @ 618 mls/hr IV O ONE Rx#:[id number] Oral 400 / 400 Output: Urine 1650 / 1650 Other: Urine Appearance Clear Urine Color Pale Yellow Weight 230 lb 9.656 oz - Imaging and Cardiology Echo: report reviewed (from 08/07/17) EKG results: image reviewed EKG interpretations - EKG EKG results cardiology: WNL - AR, pacemaker, normal Pacemaker: ventricular pacing w/capture (except when refractory) Hospital Course This is a general summary of the patient's hospital course. For more details refer to the complete medical record. Time spent with patient: 25 - 35 minutes DVT Prophylaxis: Pradaxa Assessment and Plan - Attestation Attestation Narrative: 08/26/17 08:34 Recommendation After examining the patient I agree with the above assessment. I am involved in the formulation of the patient's plan of care. - Assessment and Plan (1) Ventricular tachycardia Current visit: Yes Status: Acute Rhythm of immediate concern Discharged internal defibrillator at least 3 times in the past 2 days - Last heart cath 12/2014: EF20%, Lt main 30-40%, LAD 40%, Diag 90%, Cx minor, 1st OM 80%, RCA occluded with left to right collaterals. Grafts diagonal 30-40% , SILVERIO patent, PAP 34 - Continue Amiodarone drip - Continue cardiac telemetry - NPO after early breakfast - Left heart catheterization with possible percutaneous intervention tomorrow afternoon I examined the patient independently, review the chart and discussed finding with Dr. Melo. He agrees with the plan of care. (2) Atherosclerosis of coronary artery bypass graft without angina pectoris Current visit: Yes Status: Acute Left heart cath tomorrow (3) Presence of automatic implantable cardioverter-defibrillator Current visit: Yes Status: Acute Medtronic BI-VD (4) Ischemic cardiomyopathy Current visit: Yes Status: Acute Continue Coreg, and Entresto, Spironolactone (5) Paroxysmal atrial fibrillation Current visit: Yes Status: Acute Continue Amiodarone drip - Continue Pradaxa - Needs EP referral for ablation (6) Nonrheumatic mitral valve insufficiency Current visit: Yes Status: Acute (7) Essential (primary) hypertension Current visit: Yes Status: Acute Well controlled on current therapy, continue current therapy (8) Mixed hyperlipidemia Current visit: Yes Status: Acute Continue Atorvastatin, PCP manages
[2017-08-24] MEDS: LEVOTHYROXINE 100 MCG PO SCH (11:34)
[2017-08-24] MEDS: POM ATORVASTATIN 40 MG TABLET PO SCH (20:33)
[2017-08-25] MEDS: AMIODARONE 900 MG in NS 500ml 500 ML IV SCH (00:55)
[2017-08-25] MEDS: LEVOTHYROXINE 100 MCG PO SCH (06:13)
[2017-08-25] MEDS: FERROUS SULFATE 324 MG PO SCH (09:09)
[2017-08-25] MEDS: POM CARVEDILOL 25 MG TABLET PO SCH ×2 (09:09→17:28)
[2017-08-25] MEDS: ASCORBIC ACID 500 MG PO SCH (09:10)
[2017-08-25] MEDS: POM AMIODARONE 200 MG TABLET PO SCH (09:10)
[2017-08-25] MEDS: POTASSIUM CHLORIDE 10 MEQ PO SCH ×2 (09:10→17:28)
[2017-08-25] MEDS: POM SACUBITRIL/VALSARTAN 49/51mg TABLET PO SCH ×2 (09:11→21:09)
[2017-08-25] MEDS: POM SPIRONOLACTONE 25 MG TABLET PO SCH (09:11)
--- NOTE | 2017-08-25 13:52 | Cardiology Progress Note ---
<Tono,Amy Shannon - Last Filed: 08/25/17 14:38> Subjective Principal diagnosis: V tach Interval history: Trip is seen in follow up for V Tach with Dr. Ng this morning in CCU. He was expecting to go for left heart catheterization today, however he has taken his Pradaxa so we will wait until tomorrow. He states understanding. He denies chest pain or pressure, palpitations or cardiac complaints. Exam Vital signs: Temperature 98.1 F 08/25/17 08:00 Pulse Rate 84 08/25/17 09:30 Respiratory Rate 23 08/25/17 09:30 Blood Pressure 135/74 08/25/17 09:00 Pulse Oximetry 95 08/25/17 09:30 - Constitutional no acute distress, well nourished, cooperative - Routine HEENT Exam Head: Present: normocephalic ENT: Present: mucous membranes moist - Routine Neck Exam Absent: JVD, carotid bruit - Routine Chest/Breast/Axilla Exam Chest wall: Absent: tenderness - Routine Respiratory Exam Present: CTA bilaterally. Absent: rales, wheezes - Routine Cardiovascular Exam Present: RRR (paced), no murmur. Absent: JVD - Routine Abdominal Exam Present: soft, normoactive bowel sounds - Routine Extremities Exam Present: no edema - Routine Skin Exam Present: intact, dry, warm - Routine Neurological Exam Present: alert, oriented X3 - Routine Psychiatric Exam Present: normal affect, normal thought process - Additional findings Additional findings: Abnormal Lab Results 08/24/17 08/25/17 08/25/17 16:18 04:06 04:06 WBC 12.0 H D RBC 4.03 L Hgb 13.3 L Hct 39.5 L MCV 98.0 MCH 33.0 MCHC 33.7 RDW Std Deviation 45.2 Plt Count 292 MPV 10.1 Turbidity < 20 Sodium 137 Potassium 4.1 Chloride 101 Carbon Dioxide 26 Anion Gap 10 BUN 13.0 Creatinine 0.9 GFR Calculation 86 BUN/Creatinine Ratio 14 Glucose 101 Calculated Osmolality 264 Calcium 9.1 Magnesium 2.0 Icterus Index < 2 Troponin I < 0.012 Specimen Hemolysis 37 H < 15 Acetaminophen/Diphenhydramine HCl (Tylenol Pm) 2 tab PO HS PRN PRN Reason: INS Amiodarone HCl (Pacerone) 200 mg PO DAILY [facility] Last Admin: 08/25/17 09:10 Dose: 200 mg Ascorbic Acid (Vitamin C) 500 mg PO DAILY [facility] Last Admin: 08/25/17 09:10 Dose: 500 mg Atorvastatin Calcium (Lipitor) 40 mg PO HS [facility] Last Admin: 08/24/17 20:33 Dose: 40 mg Carvedilol (Coreg) 25 mg PO BIDWM [facility] Last Admin: 08/25/17 09:09 Dose: 25 mg Ferrous Sulfate (Feosol) 324 mg PO WB [facility] Last Admin: 08/25/17 09:09 Dose: 324 mg Furosemide (Lasix) 40 mg PO 0900,1500 [facility] Last Admin: 08/24/17 18:41 Dose: 40 mg Amiodarone HCl 900 mg/ Sodium (Chloride) 500 mls @ 16.66 mls/hr IV .Q24H [facility] PRN Reason: 0.5 MG/MIN Last Admin: 08/25/17 00:55 Dose: 0.49 mg/min, 16.66 mls/hr Levothyroxine Sodium (Synthroid) 100 mcg PO ACB [facility] Last Admin: 08/25/17 06:13 Dose: 100 mcg Potassium Chloride (Micro-K) 10 meq PO BIDWM [facility] Last Admin: 08/25/17 09:10 Dose: 10 meq Sacubitril/Valsartan (Entresto 49/51mg) 1 tab PO BID [facility] Last Admin: 08/25/17 09:11 Dose: 1 tab Sodium Chloride (Iv Flush) 10 - 80 ml IVF PRN PRN PRN Reason: Flushing Last Admin: 08/25/17 09:11 Dose: 10 ml Spironolactone (Aldactone) 25 mg PO DAILY [facility] Last Admin: 08/25/17 09:11 Dose: 25 mg Assessment and Plan - Assessment and Plan (1) Ventricular tachycardia Current visit: Yes Status: Acute Rhythm of immediate concern Discharged internal defibrillator at least 3 times on pacemaker interrogation. - Last heart cath 12/2014: EF20%, Lt main 30-40%, LAD 40%, Diag 90%, Cx minor, 1st OM 80%, RCA occluded with left to right collaterals. Grafts diagonal 30-40% , SILVERIO patent, PAP 34 - Hold Pradaxa - Continue Amiodarone drip - Continue cardiac telemetry - NPO after midnight for Left heart catheterization with possible percutaneous intervention tomorrow am (2) Atherosclerosis of coronary artery bypass graft without angina pectoris Current visit: Yes Status: Acute (3) Presence of automatic implantable cardioverter-defibrillator Current visit: Yes Status: Acute (4) Ischemic cardiomyopathy Current visit: Yes Status: Acute (5) Paroxysmal atrial fibrillation Current visit: Yes Status: Acute (6) Nonrheumatic mitral valve insufficiency Current visit: Yes Status: Acute (7) Essential (primary) hypertension Current visit: Yes Status: Acute (8) Mixed hyperlipidemia Current visit: Yes Status: Acute Hospital Course Summary Disclaimer: The visit summary below is not to be considered part of the above Progress Note. <Juan Antonio Ng - Last Filed: 08/25/17 19:35> Exam Vital signs: Temperature 97.5 F 08/25/17 15:09 Pulse Rate 86 08/25/17 15:30 Respiratory Rate 19 08/25/17 15:09 Blood Pressure 116/64 08/25/17 15:09 Pulse Oximetry 100 08/25/17 15:09 Assessment and Plan - Assessment and Plan (1) Ventricular tachycardia Current visit: Yes Status: Acute (2) Atherosclerosis of coronary artery bypass graft without angina pectoris Current visit: Yes Status: Acute (3) Presence of automatic implantable cardioverter-defibrillator Current visit: Yes Status: Acute (4) Ischemic cardiomyopathy Current visit: Yes Status: Acute (5) Paroxysmal atrial fibrillation Current visit: Yes Status: Acute (6) Nonrheumatic mitral valve insufficiency Current visit: Yes Status: Acute (7) Essential (primary) hypertension Current visit: Yes Status: Acute (8) Mixed hyperlipidemia Current visit: Yes Status: Acute Hospital Course Summary Disclaimer: The visit summary below is not to be considered part of the above Progress Note.
[2017-08-25] MEDS: POM FUROSEMIDE 40 MG TABLET PO SCH ×2 (13:58→16:12)
[2017-08-25] MEDS: POM ATORVASTATIN 40 MG TABLET PO SCH (21:09)
[2017-08-26] MEDS: AMIODARONE 900 MG in NS 500ml 500 ML IV SCH (00:48)
[2017-08-26] MEDS: LEVOTHYROXINE 100 MCG PO SCH (06:27)
[2017-08-26] MEDS ORDERED: HEPARIN 1,000 UNITS/500 ML PREMIX (*CVL ONLY*) IV ONE (06:53)
[2017-08-26] MEDS ORDERED: LIDOCAINE 1% (10mg/ml) 30ml SDV INJ ONE (06:53)
[2017-08-26] MEDS ORDERED: IOHEXOL 350mg/ml 200ml BOTTLE ONE ×2 (06:55→08:34)
[2017-08-26] MEDS ORDERED: FentaNYL 100 MCG/2 ML INJECTION ONE (08:12)
[2017-08-26] MEDS ORDERED: SALINE FLUSH 10ml SYRINGE ONE (08:12)
[2017-08-26] MEDS ORDERED: MIDAZOLAM 2mg/2ml INJECTION ONE (08:12)
[2017-08-26] MEDS ORDERED: NS 1,000 ML ONE (08:30)
[2017-08-26] MEDS ORDERED: BISACODYL 10 MG SUPPOSITORY RECTALLY PRN (08:58)
[2017-08-26] MEDS ORDERED: ATROPINE 1 MG/ML INJECTION IVP PRN (08:58)
[2017-08-26] MEDS ORDERED: ACETAMINOPHEN 325 MG TABLET PO PRN (08:58)
[2017-08-26] MEDS ORDERED: MORPHINE SULFATE 4mg INJECTION IVP PRN ×2 (08:58)
[2017-08-26] MEDS ORDERED: PROMETHAZINE 25 MG INJECTION IVP PRN (08:58)
[2017-08-26] MEDS ORDERED: MAG-AL + SIM ORAL LIQUID 30ml PO PRN (08:58)
[2017-08-26] MEDS ORDERED: METOCLOPRAMIDE 10mg/2ml INJECTION IVP PRN (08:58)
[2017-08-26] MEDS ORDERED: ONDANSETRON 4 MG/2 ML INJECTION IVP PRN (08:58)
[2017-08-26] MEDS ORDERED: Bisacodyl EC TAB 5 MG TABLET PO PRN (08:58)
[2017-08-26] MEDS ORDERED: LORazepam 0.5 MG TABLET PO PRN (08:58)
[2017-08-26] MEDS ORDERED: HYDROCODONE/APAP 7.5 MG/325 MG TABLET PO PRN (08:58)
[2017-08-26] MEDS ORDERED: NITROGLYCERIN 0.4 MG SUBLINGUAL TABLET SL PRN (08:58)
[2017-08-26] MEDS: NS 1,000 ML IV SCH ×2 (09:19→21:56)
[2017-08-26] MEDS: POM CARVEDILOL 25 MG TABLET PO SCH ×2 (09:50→17:12)
[2017-08-26] MEDS: POTASSIUM CHLORIDE 10 MEQ PO SCH ×2 (09:51→17:12)
[2017-08-26] MEDS: ASCORBIC ACID 500 MG PO SCH (09:51)
[2017-08-26] MEDS: FERROUS SULFATE 324 MG PO SCH (09:51)
[2017-08-26] MEDS: POM FUROSEMIDE 40 MG TABLET PO SCH ×2 (09:52→14:45)
[2017-08-26] MEDS: POM SACUBITRIL/VALSARTAN 49/51mg TABLET PO SCH ×2 (09:52→20:43)
[2017-08-26] MEDS: POM SPIRONOLACTONE 25 MG TABLET PO SCH (09:53)
[2017-08-26] MEDS: --POM--AMIODARONE 200 MG TABLET PO SCH ×2 (14:45→20:44)
--- NOTE | 2017-08-26 15:45 | Cardiac Catheterization Report ---
DATE OF PROCEDURE August 26, 2017 The patient is a pleasant 61-year-old gentleman with history of coronary artery disease, coronary artery bypass graft, cardiomyopathy and ICD placement who has been having recurrence of ventricular tachycardia requiring therapy from his device. He had three episodes of VT with therapy delivered by his device and was admitted and referred for further evaluation by cardiac catheterization and possible intervention. Informed consent was obtained after explaining the procedure and the potential risks to the patient who agreed to proceed with the procedure. PROCEDURES 1. Left heart catheterization. 2. Coronary angiography. 3. Left ventriculography. 4. Bypass angiography. 5. Selective SILVERIO angiography. 6. Ascending aortic angiography to visualize the aorta to investigate for presence of bypass graft. 7. Right femoral angiography to visualize the vessel for Mynx deployment. 8. Successful Mynx deployment for hemostasis. TECHNIQUE He was prepped and draped in the usual sterile techniques. Conscious sedation was performed using Versed and fentanyl. 1% lidocaine was used for local anesthesia. Using modified Seldinger technique, arterial access was obtained into the right femoral artery with placement of a 6-Turkmen arterial sheath. LEFT VENTRICULOGRAPHY Left ventriculography in single-plane SUAREZ shallow projection showed global hypokinesia with ejection fraction of about 25%-30% with no mitral regurgitation or gradient across the aortic valve. LVEDP was about 4. CORONARY ANGIOGRAPHY Left main had about 30%-40% stenosis. The left anterior descending artery had about 50% stenosis. Competitive flow was coming into the distal LAD through SILVERIO to LAD. Diagonal was occluded. The left circumflex artery was free of significant lesions. Right coronary artery was occluded with [id number] collaterals. SILVERIO to LAD was widely patent with excellent flow. A vein graft to diagonal was occluded. Ascending aortic angiography showed no patent grafts. Right femoral angiography showed patent common femoral, proximal SFA and profunda and therefore Mynx was used for hemostasis. IMPRESSION 1. Coronary artery disease as described above. 2. Global hypokinesia with ejection fraction of about 25%-30%. 3. Successful Mynx deployment for hemostasis. PLAN Will continue medical management and follow him clinically. JONAH
[2017-08-26] MEDS: POM ATORVASTATIN 40 MG TABLET PO SCH (20:44)
[2017-08-27] MEDS: LEVOTHYROXINE 100 MCG PO SCH (06:06)
[2017-08-27 06:53] VITALS: BP 109/57; PULSE 71; RESP 20; TEMP 97.5; O2SAT 97
[2017-08-27] MEDS: POTASSIUM CHLORIDE 10 MEQ PO SCH (08:00)
[2017-08-27] MEDS: POM CARVEDILOL 25 MG TABLET PO SCH (08:00)
[2017-08-27] MEDS: --POM--AMIODARONE 200 MG TABLET PO SCH (08:00)
[2017-08-27] MEDS: POM SACUBITRIL/VALSARTAN 49/51mg TABLET PO SCH (08:00)
[2017-08-27] MEDS: POM FUROSEMIDE 40 MG TABLET PO SCH (08:01)
[2017-08-27] MEDS: ASCORBIC ACID 500 MG PO SCH (08:01)
[2017-08-27] MEDS: POM SPIRONOLACTONE 25 MG TABLET PO SCH (08:02)
[2017-08-27] MEDS: FERROUS SULFATE 324 MG PO SCH (08:02)
--- NOTE | 2017-08-27 09:18 | Discharge Summary ---
<Radha Power - Last Filed: 08/27/17 09:15> Discharge Information Date of admission: 08/25/17 10:09 Anticipated date of discharge: 08/27/17 Attending Physician: Rinku Melo MD Primary care physician: Nilsa Stone APRN Consults: 08/26/17 08:58 Outpt Cardiac Rehab Consult [CONS] Routine - Discharge Diagnosis (1) Ventricular tachycardia Status: Acute (2) Atherosclerosis of coronary artery bypass graft without angina pectoris Status: Acute (3) Presence of automatic implantable cardioverter-defibrillator Status: Acute (4) Ischemic cardiomyopathy Status: Acute (5) Paroxysmal atrial fibrillation Status: Acute (6) Nonrheumatic mitral valve insufficiency Status: Acute (7) Essential (primary) hypertension Status: Acute (8) Mixed hyperlipidemia Status: Acute - Procedures Procedures: Date of Exam: 08/25/17 Type of Exam(s): CA heart cath LT DATE OF PROCEDURE August 26, 2017 The patient is a pleasant 61-year-old gentleman with history of coronary artery disease, coronary artery bypass graft, cardiomyopathy and ICD placement who has been having recurrence of ventricular tachycardia requiring therapy from his device. He had three episodes of VT with therapy delivered by his device and was admitted and referred for further evaluation by cardiac catheterization and possible intervention. Informed consent was obtained after explaining the procedure and the potential risks to the patient who agreed to proceed with the procedure. PROCEDURES 1. Left heart catheterization. 2. Coronary angiography. 3. Left ventriculography. 4. Bypass angiography. 5. Selective SILVERIO angiography. 6. Ascending aortic angiography to visualize the aorta to investigate for presence of bypass graft. 7. Right femoral angiography to visualize the vessel for Mynx deployment. 8. Successful Mynx deployment for hemostasis. TECHNIQUE He was prepped and draped in the usual sterile techniques. Conscious sedation was performed using Versed and fentanyl. 1% lidocaine was used for local anesthesia. Using modified Seldinger technique, arterial access was obtained into the right femoral artery with placement of a 6-Senegalese arterial sheath. LEFT VENTRICULOGRAPHY Left ventriculography in single-plane SUAREZ shallow projection showed global hypokinesia with ejection fraction of about 25%-30% with no mitral regurgitation or gradient across the aortic valve. LVEDP was about 4. CORONARY ANGIOGRAPHY Left main had about 30%-40% stenosis. The left anterior descending artery had about 50% stenosis. Competitive flow was coming into the distal LAD through SILVERIO to LAD. Diagonal was occluded. The left circumflex artery was free of significant lesions. Right coronary artery was occluded with juhy-td-brszy collaterals. SILVERIO to LAD was widely patent with excellent flow. A vein graft to diagonal was occluded. Ascending aortic angiography showed no patent grafts. Right femoral angiography showed patent common femoral, proximal SFA and profunda and therefore Mynx was used for hemostasis. IMPRESSION 1. Coronary artery disease as described above. 2. Global hypokinesia with ejection fraction of about 25%-30%. 3. Successful Mynx deployment for hemostasis. PLAN Will continue medical management and follow him clinically. - Laboratory Labs: 08/27/17 04:24 08/27/17 04:24 Abnormal Lab Results 08/27/17 08/27/17 04:24 04:24 WBC 9.0 RBC 3.62 L Hgb 11.9 L Hct 35.5 L MCV 98.1 MCH 32.9 MCHC 33.5 RDW Std Deviation 43.7 Plt Count 264 MPV 10.2 Immature Gran % (Auto) 0.3 Neut % (Auto) 72.2 H Lymph % (Auto) 17.3 L Moore % (Auto) 9.6 H Eos % (Auto) 0.4 Baso % (Auto) 0.2 Neut # (Auto) 6.5 Lymph # (Auto) 1.6 Moore # (Auto) 0.9 H Eos # (Auto) 0.0 Baso # (Auto) 0.0 Abs Immat Gran (auto) 0.03 Turbidity < 20 Sodium 136 Potassium 3.7 Chloride 101 Carbon Dioxide 25 Anion Gap 10 BUN 13.0 Creatinine 0.9 GFR Calculation 86 BUN/Creatinine Ratio 14 Glucose 101 Calculated Osmolality 262 Calcium 9.0 Icterus Index < 2 Triglycerides 75 Cholesterol 162 LDL Cholesterol, Calc 104.0 VLDL Cholesterol 15.0 HDL Cholesterol 43 Cholesterol/HDL Ratio 3.8 Specimen Hemolysis < 15 Acetaminophen (Tylenol) 325 - 650 mg PO Q5H PRN PRN Reason: Pain Acetaminophen/Diphenhydramine HCl (Tylenol Pm) 2 tab PO HS PRN PRN Reason: INS Hydrocodone Bitart/Acetaminophen ([place] 7.5/325) 1 - 2 tab PO Q5H PRN PRN Reason: Pain Al Hydroxide/Mg Hydroxide (Maalox Plus) 30 ml PO Q3H PRN PRN Reason: Indigestion Amiodarone HCl (Pacerone) 200 mg PO BID [facility], [facility] Last Admin: 08/27/17 08:00 Dose: 200 mg Ascorbic Acid (Vitamin C) 500 mg PO DAILY [facility], [facility] Last Admin: 08/27/17 08:01 Dose: 500 mg Atorvastatin Calcium (Lipitor) 40 mg PO HS [facility] Last Admin: 08/26/17 20:44 Dose: 40 mg Atropine Sulfate (Atropine) 0.5 mg IVP Q5M PRN PRN Reason: Bradycardia Bisacodyl (Dulcolax) 5 - 10 mg PO DAILY PRN PRN Reason: Constipation Bisacodyl (Dulcolax) 10 mg RECTALLY DAILY PRN PRN Reason: Constipation Carvedilol (Coreg) 25 mg PO BIDWM [facility], [facility] Last Admin: 08/27/17 08:00 Dose: 25 mg Dabigatran (Pradaxa) 150 mg PO BID [facility] Last Admin: 08/27/17 08:02 Dose: 150 mg Ferrous Sulfate (Feosol) 324 mg PO WB [facility] Last Admin: 08/27/17 08:02 Dose: 324 mg Furosemide (Lasix) 40 mg PO 0900,1500 [facility] Last Admin: 08/27/17 08:01 Dose: 40 mg Sodium Chloride (Normal Saline) 1,000 mls @ 75 mls/hr IV .[id number] [facility] Last Admin: 08/26/17 21:56 Dose: 75 mls/hr Levothyroxine Sodium (Synthroid) 100 mcg PO ACB [facility] Last Admin: 08/27/17 06:06 Dose: 100 mcg Lorazepam (Ativan) 0.5 - 1 mg PO Q4H PRN PRN Reason: Anxiety Lorazepam (Ativan Inj) 0.5 - 1 mg IVP Q4H PRN PRN Reason: Anxiety Magnesium Hydroxide (Mom) 30 ml PO DAILY PRN PRN Reason: Constipation Metoclopramide HCl (Reglan) 5 - 10 mg IVP Q6H PRN PRN Reason: Nausea &/or vomiting Morphine Sulfate (Morphine Sulfate Inj) 2 - 4 mg IVP Q5M PRN PRN Reason: Angina Nitroglycerin (Nitrostat) 0.4 mg SL Q5MIN3 PRN PRN Reason: Angina Ondansetron HCl (Zofran) 4 mg IVP Q6H PRN PRN Reason: Nausea &/or vomiting Potassium Chloride (Micro-K) 10 meq PO BIDWM [facility] Last Admin: 08/27/17 08:00 Dose: 10 meq Promethazine HCl (Phenergan Inj) 12.5 - 25 mg IVP Q6H PRN PRN Reason: Nausea &/or vomiting Sacubitril/Valsartan (Entresto 49/51mg) 1 tab PO BID [facility] Last Admin: 08/27/17 08:00 Dose: 1 tab Sodium Chloride (Iv Flush) 10 - 80 ml IVF PRN PRN PRN Reason: Flushing Last Admin: 08/25/17 09:11 Dose: 10 ml Spironolactone (Aldactone) 25 mg PO DAILY [facility] Last Admin: 08/27/17 08:02 Dose: 25 mg History of Present Illness HPI: Trip is a 61 year old male who is well known to Dr. Melo with a history of ischemic cardiomyopathy with [employer]tr[employer] BI-V/D, CAD with CABG, PAF, nonrheumatic mitral valve insufficiency, HTN and HLD who presented to ED with complaint of defibrillator going off at home last evening around 8pm. He reports that prior to defibrillator going off, he felt light he might pass out and was SOA. Denied any associated CP, nausea or diaphoresis. He reports that he thinks the defibrillator went off yesterday morning and also on . He was admitted to CCU in the care of Dr. Melo. He is seen this morning in CCU. He denies chest pain or pressure, palpitations, dyspnea, dizziness or lightheadedness. Hospital Course This is a general summary of the patient's hospital course. For more details refer to the complete medical record. Hospital course: 08/24/17 Rhythm of immediate concern Discharged internal defibrillator at least 3 times in the past 2 days - Last heart cath 12/2014: EF20%, Lt main 30-40%, LAD 40%, Diag 90%, Cx minor, 1st OM 80%, RCA occluded with left to right collaterals. Grafts diagonal 30-40% , SILVERIO patent, PAP 34 - Continue Amiodarone drip - Continue cardiac telemetry - NPO after early breakfast - Left heart catheterization with possible percutaneous intervention tomorrow afternoon 08/25/17 Patient had Pradaxa this am, will wait to do heart cath tomorrow 08/26/17 Underwent left heart cath without intervention. Amiodarone changed from drip to oral, monitor telemetry for further ventricular arrhythmias DVT Prophylaxis: Pradaxa Exam Vital signs: Temperature 97.5 F 08/27/17 06:48 Pulse Rate 71 08/27/17 06:48 Respiratory Rate 20 08/27/17 06:48 Blood Pressure 109/57 08/27/17 06:48 Pulse Oximetry 97 08/27/17 06:48 - Constitutional no acute distress, cooperative - Routine HEENT Exam Head: Present: normocephalic ENT: Present: mucous membranes moist - Routine Neck Exam Absent: JVD, carotid bruit - Routine Chest/Breast/Axilla Exam Chest wall: Absent: tenderness - Routine Respiratory Exam Present: CTA bilaterally. Absent: rales, wheezes - Routine Cardiovascular Exam Present: RRR (A paced, V paced), no murmur - Routine Abdominal Exam Present: soft, normoactive bowel sounds - Routine Extremities Exam Present: no edema - Routine Skin Exam Present: intact, dry, warm - Routine Neurological Exam Present: alert, oriented X3 - Routine Psychiatric Exam Present: normal affect, normal thought process Results 08/27/17 04:24 08/27/17 04:24 Lipids 08/27/17 Range/Units 04:24 Triglycerides 75 (40-160) MG/DL Cholesterol 162 (132-199) MG/DL HDL Cholesterol 43 (40-60) MG/DL Cholesterol/HDL Ratio 3.8 (0-5.0) RATIO CBC 08/27/17 Range/Units 04:24 WBC 9.0 (4.5-11.0) T/MM3 RBC 3.62 L (4.50-5.90) M/MM3 Hgb 11.9 L (13.5-17.5) GM/DL Hct 35.5 L (41-53) % Plt Count 264 (130-400) T/MM3 Neut # (Auto) 6.5 (1.8-7.7) T/MM3 Lymph # (Auto) 1.6 (1-4.8) T/MM3 Moore # (Auto) 0.9 H (0-0.8) T/MM3 Eos # (Auto) 0.0 (0-0.5) T/MM3 Baso # (Auto) 0.0 (0-0.2) T/MM3 Comprehensive Metabolic Panel 08/27/17 Range/Units 04:24 Sodium 136 (134-144) MEQ/L Potassium 3.7 (3.6-5) MEQ/L Chloride 101 (98-107) MEQ/L Carbon Dioxide 25 (22-30) MEQ/L BUN 13.0 (9-20) MG/DL Creatinine 0.9 (0.8-1.5) MG/DL Glucose 101 (75-110) MG/DL Calcium 9.0 (8.4-10.2) MG/DL Intake and Output 08/26/17 08/27/17 08/27/17 22:59 06:59 14:59 Intake Total 946.25 / 946.25 540 / 540 Balance 946.25 / 946.25 540 / 540 Intake: IV 946.25 / 946.25 Ns 1,000 ml @ 75 mls/hr 946.25 / 946.25 IV .[id number] DAILY Rx#: [id number] Oral 540 / 540 Other: Urine Appearance Clear Urine Color Yellow Urine Odor Normal # Voids 1 Weight 220 lb 0.341 oz - Imaging and Cardiology EKG results: image reviewed - EKG Interpretation EKG: sinus rhythm (A & V paced) Discharge Plan - Med Rec/Dispo Referrals/Follow Up: Rinku Melo MD [Physician] - 09/09/17 2:10 pm [place] Instructions: [facility] [place]criptions: New Amiodarone [Pacerone] 200 mg PO BID #60 tab Continue Spironolactone [Aldactone] 25 mg PO DAILY #30 tab SACUBITRIL/VALSARTAN 49/51mg [ENTRESTO 49/51mg] 1 tab PO BID Carvedilol [Coreg] 1 tab PO BIDWM Ascorbic Acid 500 mg PO DAILY Atorvastatin Calcium 1 tab PO HS #0 tab Potassium Chloride 10 meq PO BIDWM #0 cap Furosemide 1 tab PO BID #0 tab Acetaminophen/Diphenhydramine [Acetaminophen Pm Caplet] 2 tab PO HS PRN #0 tab PRN Reason: INSOMNIA Levothyroxine Tab [Synthroid] 1 tab PO ACB Dabigatran [Pradaxa] 1 cap PO BID Ferrous Sulfate 325 mg PO DAILY Amiodarone [Pacerone] 200 mg PO DAILY #30 tab - Disposition 01 Discharged Home, Self-Care <Rinku Melo - Last Filed: 08/29/17 08:12> Discharge Information Date of admission: 08/25/17 10:09 Attending Physician: Rinku Melo MD Primary care physician: Nilsa Stone APRN Consults: 08/26/17 08:58 Outpt Cardiac Rehab Consult [CONS] Routine - Discharge Diagnosis (1) Ventricular tachycardia Status: Acute (2) Atherosclerosis of coronary artery bypass graft without angina pectoris Status: Acute (3) Presence of automatic implantable cardioverter-defibrillator Status: Acute (4) Ischemic cardiomyopathy Status: Acute (5) Paroxysmal atrial fibrillation Status: Acute (6) Nonrheumatic mitral valve insufficiency Status: Acute (7) Essential (primary) hypertension Status: Acute (8) Mixed hyperlipidemia Status: Acute - Laboratory Labs: 08/27/17 04:24 08/27/17 04:24 Hospital Course This is a general summary of the patient's hospital course. For more details refer to the complete medical record. Exam Vital signs: Temperature 97.5 F 08/27/17 06:48 Pulse Rate 71 08/27/17 06:48 Respiratory Rate 20 08/27/17 06:48 Blood Pressure 109/57 08/27/17 06:48 Pulse Oximetry 97 08/27/17 06:48 Results 08/27/17 04:24 08/27/17 04:24 Discharge Plan - Med Rec/Dispo - Attestation Attestation Narrative: 08/29/17 08:12 Recommendation After examining the patient I agree with the above assessment. I am involved in the formulation of the patient's plan of care.
== END 2017-08-27 10:00 | disposition home or self-care (01) | DRG 287 ==
LOC: CCU 20:56 → ED 20:56 → CCU 23:00 → SRG 08-25 15:08
PROVIDERS: ADMIT Internal Medicine Cardiovascular Disease; ATTEND Internal Medicine Cardiovascular Disease

== ENCOUNTER 2017-11-02 19:49 | Observation (INO) ==
[2017-11-02] MEDS ORDERED: SALINE FLUSH 10ml SYRINGE IVF PRN (20:03)
--- NOTE | 2017-11-02 20:05 | Emergency Department Report ---
General Adult HPI - General Chief complaint: Dizziness Stated complaint: dizziness Time Seen by Provider: 11/02/17 20:01 Source: patient, family, EMS Mode of arrival: EMS Limitations: no limitations - History of Present Illness HPI narrative: 61-year-old male presents to the emergency department with a chief complaint of syncope. Patient has had 2 episodes of syncope since approximately 6 PM this evening. Patient had gotten up to go the bathroom each time. He denies any current pain or discomfort. He is unsure of wether or not he struck his head. He denies headache or neck pain. He does admit to feeling lightheaded when he gets up to go to the bathroom. Patient does note a couple of episodes of loose stool earlier today without blood or mucus. No emesis. No other complaints or associated symptoms. He has no current pain or discomfort. He was at home when his symptoms began. Symptoms have been persistent in nature since onset. - Related Data Home Medications Medication Instructions Recorded Confirmed Acetaminophen/Diphenhydramine 2 tab PO HS PRN #0 tab 12/06/14 11/02/17 [Acetaminophen Pm Caplet] Atorvastatin Calcium 40 mg PO HS #0 tab 12/06/14 11/02/17 Potassium Chloride 10 meq PO BIDBL #0 cap 12/06/14 11/02/17 Carvedilol [Coreg] 25 mg PO BIDWM 08/07/17 11/02/17 Dabigatran [Pradaxa] 150 mg PO BID 08/07/17 11/02/17 Ferrous Sulfate 325 mg PO NOON 08/07/17 11/02/17 Levothyroxine Tab [Synthroid] 100 mcg PO ACB 08/07/17 11/02/17 SACUBITRIL/VALSARTAN 49/51mg 1 tab PO BIDBS 08/07/17 11/02/17 [ENTRESTO 49/51mg] Furosemide [Lasix] 40 mg PO BID 11/02/17 11/02/17 Previous Rx's Medication Instructions Recorded Spironolactone [Aldactone] 25 mg PO DAILY #30 tab 12/09/14 Amiodarone [Pacerone] 200 mg PO BID #60 tab 08/27/17 Allergies Allergy/AdvReac Type Severity Reaction Status Date / Time No Known Allergies Allergy Verified 11/02/17 20:00 Review of Systems Constitutional: Denies: fever, chills Eyes: Denies: eye pain, vision change ENT: Denies: ear pain, throat pain Cardiovascular: Denies: chest pain, palpitations Respiratory: Denies: cough, dyspnea Gastrointestinal: Reports: diarrhea. Denies: abdominal pain, nausea, vomiting Genitourinary: Denies: urgency, dysuria Musculoskeletal: Denies: back pain, arthralgia Integumentary: Denies: erythema, rash Neurological: Denies: headache, numbness Psychiatric: Denies: anxiety, depression Endocrine: Denies: fatigue, heat or cold intolerance Hematological/Lymphatic: Denies: easy bleeding, easy bruising Allergic/Immunologic: Denies: facial swelling, urticaria PFSH Patient Stated Medical History Cataracts Yes: not removed yet Angina Yes Cardiac Arrhythmia Yes Congestive Heart Failure Yes Coronary Artery Disease Yes Hypertension Yes Myocardial Infarction Yes: STEMI @ 43yoa Pneumonia Yes Sleep Apnea No Other Musculoskeletal Yes: reynauds Cellulitis Yes: brown recluse bites June 2017 Medical History Updates: Coronary artery disease. CABG 3. Cardiomyopathy with AICD. Hyperlipidemia. Hypertension. Cataracts Surgical History: CABG 3 vessels. AICD placement Family History: Reviewed and noncontributory. - Social History Smoking status: Current some day smoker Substance use type: does not use Alcohol intake frequency: does not drink Current residence: Apartment/Private Home Physical Exam - Limitations Limitations: no limitations - General General appearance: alert, in no apparent distress - Normal Exams: Head:: Normocephalic without trauma Eyes:: Pupils are PERRLA w/ EOMI, No scleral icterus, irritation, or foreign bodies noted ENMT:: No facial trauma, nasal exudates, pharyngeal erythema, or exudates are noted Dental: No fractured, loose, or missing teeth noted Neck:: Full range of motion (no midline tenderness or deformity of the cervical spine.), without adenopathy, JVD, bruits or thyromegaly Chest/Respirations:: Clear all javier, with good airflow, and symmetry bilaterally Cardiovascular:: Regular rate and rhythm, without murmur or gallop, Pulses 2+ all extremities, capillary refill, <2 seconds all extremities Abdomen:: Bowel sounds positive, soft, non-tender, non-distended, no hepatosplenomegaly, masses or bruits noted Lymphatic:: No lymphadenopathy, or lymphedema noted Musculoskeletal:: No tenderness, or deformity noted, good range of motion, all extremities Integumentary:: No rashes, hives, or bruising noted, hair and nails, without abnormality Neurological:: Patient is alert, and oriented, cranial nerves, motor/sensory/ cerebellar, exams w/o gross deficits, to observation Psychiatric:: Patient exhibits, appropriate attention, emotion and affect Course Vital Signs Pulse Rate 77 11/02/17 19:49 Respiratory Rate 20 11/02/17 19:49 Blood Pressure 138/70 11/02/17 19:49 Pulse Oximetry 96 11/02/17 19:49 Temperature 98.5 F 11/02/17 20:51 Pulse Rate 79 11/02/17 21:15 Respiratory Rate 23 11/02/17 21:15 Blood Pressure 102/58 11/02/17 21:15 Pulse Oximetry 95 11/02/17 21:15 Medical Decision Making - [facility] Narrative Medical decision making narrative: Labs/imaging were discussed in detail with the patient and family and questions are answered. Patient does not have any source of infection at this time. Patient was slightly borderline hypotensive in the emergency department and 1 L of normal saline bolus was given to which the patient responded appropriately. Patient is discussed with Dr. Melo who is the patient's media intern and who recommends admission to the hospital and discussion with Dr. Ng. Patient is accepted for admission to the hospital by Dr. Ng who is in agreement with the current plan of management. Patient maintains that he is not experiencing any pain or discomfort during his emergency department stay. Patient denies chest pain or shortness of breath. He is anticoagulated on Pradaxa. CT of the head was negative. Patient will be admitted to the CCU for further evaluation and treatment at this time. No further orders from accepting or consulting physicians who were in agreement with the current plan of management. Patient is admitted to the hospital in improved condition. Patient and family are in agreement with the current plan of management. Patient does express his desire to be a DO NOT RESUSCITATE. This is discussed in detail with the patient and family who are in agreement. Order for DO NOT RESUSCITATE status is written at this time. - Differential Diagnosis Syncope, dehydration, UTI, Vertigo - Lab Data Result diagrams: 11/02/17 20:08 11/02/17 20:08 Lab Results 11/02/17 11/02/17 11/02/17 Range/Units 20:08 20:08 20:22 WBC 12.0 H (4.5-11.0) T/MM3 RBC 3.92 L (4.50-5.90) M/MM3 Hgb 13.1 L (13.5-17.5) GM/DL Hct 37.8 L (41-53) % MCV 96.4 (80-100) UM3 MCH 33.4 (26-34) UUG MCHC 34.7 (31-37) GM/DL RDW Std Deviation 44.5 (36.9-50.2) FL Plt Count 299 (130-400) T/MM3 MPV 9.7 (9.4-12.4) UM3 Immature Gran % (Auto) 0.4 (0.0-0.5) % Neut % (Auto) 77.1 H (33-66) % Lymph % (Auto) 16.1 L (23-45) % Gooding % (Auto) 5.9 (0-9.0) % Eos % (Auto) 0.2 (0-4) % Baso % (Auto) 0.3 (0-2) % Neut # (Auto) 9.3 H (1.8-7.7) T/MM3 Lymph # (Auto) 1.9 (1-4.8) T/MM3 [place]ing # (Auto) 0.7 (0-0.8) T/MM3 Eos # (Auto) 0.0 (0-0.5) T/MM3 Baso # (Auto) 0.0 (0-0.2) T/MM3 Abs Immat Gran (auto) 0.05 H (0.00-0.03) T/MM3 Turbidity < 20 (0-20) Sodium 136 (134-144) MEQ/L Potassium 3.5 L (3.6-5) MEQ/L Chloride 96 L (98-107) MEQ/L Carbon Dioxide 24 (22-30) MEQ/L Anion Gap 16 H (5-15) MEQ/L BUN 13.0 (9-20) MG/DL Creatinine 1.3 (0.8-1.5) MG/DL GFR Calculation 56 BUN/Creatinine Ratio 10 (6-26) RATIO Glucose 99 (75-110) MG/DL Calculated Osmolality 262 (261-280) MOSM/KG Calcium 9.2 (8.4-10.2) MG/DL Total Bilirubin 0.40 (0.20-1.30) MG/DL Icterus Index < 2 (0-7) AST 25 (17-59) U/L ALT 27 (21-72) U/L Alkaline Phosphatase 102 (38-126) U/L Troponin I < 0.012 (0-0.12) ng/ml Total Protein 7.8 (6.3-8.2) G/DL Albumin 5.0 (3.5-5.0) G/DL Globulin 2.8 (2.4-3.6) G/DL Albumin/Globulin Ratio 1.8 (1.1-2.2) RATIO Specimen Hemolysis < 15 (0-25) Ur Collection Type Urine, clean catch Urine Color Yellow (YELLOW) Urine Clarity Clear Urine pH 7.0 (5.0-8.0) Ur Specific Buckley 1.010 L (1.015-1.025) Urine Protein Negative (NEGATIVE) Urine Glucose (UA) Negative (NEGATIVE) Urine Ketones Negative (NEGATIVE) Urine Occult Blood Negative (NEGATIVE) Urine Nitrate Negative (NEGATIVE) Urine Bilirubin Negative (NEGATIVE) Urine Urobilinogen 0.2 (NORMAL) EU/DL Ur Leukocyte Esterase Negative (NEGATIVE) Urinalysis Comment Microscopic not ind. - Radiology Data CXR - No obvious acute processes. CT Head - No acute processes. - EKG Data EKG #1 EKG results narrative: Electronic ventricular pacemaker. 78 bpm. No STEMI. Disposition Clinical Impression: Syncope Qualifiers: Syncope type: unspecified Qualified Code(s): R55 - Syncope and collapse Disposition: 02 To [facility] Print Language: Pashto Condition: Improved Prescriptions: No Action Spironolactone [Aldactone] 25 mg PO DAILY #30 tab SACUBITRIL/VALSARTAN 49/51mg [ENTRESTO 49/51mg] 1 tab PO BIDBS Carvedilol [Coreg] 25 mg PO BIDWM Amiodarone [Pacerone] 200 mg PO BID #60 tab Furosemide [Lasix] 40 mg PO BID Atorvastatin Calcium 40 mg PO HS #0 tab Potassium Chloride 10 meq PO BIDBL #0 cap Acetaminophen/Diphenhydramine [Acetaminophen Pm Caplet] 2 tab PO HS PRN #0 tab PRN Reason: INSOMNIA Levothyroxine Tab [Synthroid] 100 mcg PO ACB Dabigatran [Pradaxa] 150 mg PO BID Ferrous Sulfate 325 mg PO NOON Referrals: Nilsa Stone, LYDIA [Family Provider] - Time of Disposition: 21:15 (Admit. Dr. Ng. ) - Seen By: physician
[2017-11-02] MEDS ORDERED: NS 1,000 ML IV ONE (20:50)
[2017-11-02 22:11] VITALS: BMI 31.8
[2017-11-03] MEDS ORDERED: LEVOTHYROXINE 100 MCG TABLET PO SCH (06:30)
[2017-11-03] MEDS ORDERED: FUROSEMIDE 40 MG TABLET PO SCH (10:30)
[2017-11-03] MEDS ORDERED: SACUBITRIL/VALSARTAN 49/51mg TABLET PO SCH (10:30)
--- NOTE | 2017-11-03 11:28 | Cardiology History & Physical ---
History of Present Illness Chief complaint: Syncope HPI: Mr Bocanegra, is a 61 years old male with past medical history of HTN, known multi- vessel CAD, s/p CABG (Cath in 08/2017 showed Patent SILVERIO to LAD, occluded RCA, lt to rt collaterals, patent LCx, occluded Diag and diag graft), Ischemic cardiomyopathy (LVEF 30-35%), s/p BiV-ICD placement, Paroxysmal atrial fibrillation on heavy forger helper chronic anticoagulation with Prdaxa; presented with an episode of syncope. Patient reports he finished his dinner, and felt somewhat dizzy, got up to go to bathroom and felt very lightheaded, and then passed out. Witnessed by , EMS arrived, and found to have significant hypotension, received IV NS 500ml in ambulance, brought to [facility]. In ER, had low BP, and received another bolus of NS 500ml. Patient reports that he had some diarrhea earlier yesterday. He felt very dehydrated yesterday. He took his evening meds, including Coreg 25mg, Entresto 49/52mg and Lasix 40mg an hour prior to the episode. He has had episode of syncope 2 months prior to presentation, but at the time, he had episodes of VT, and received two shocks. At that time he underwent coronary angiography which showed no acute coronary event, he was treated with Amiodarone, and currently is on PO Amiodarone. Reports he felt the shocks last time, but this time he just felt dizzy and lightheaded and dehydrated. Device interrogation shows no ventricular arrhythmias. Denies chest pain, SOB, palpitations, orthopnea, PND, peripheral edema. He reports otherwise he is fairly active, and can walk up to half a mile or so without getting SOB. Review of Systems - Constitutional Constitutional: Present: as per HPI. Absent: anorexia, chills, fatigue, malaise , weight gain, weight loss - EENMT Eyes: Absent: blurry vision, change in vision - Cardiovascular Cardiovascular: Present: syncope, heart murmur, as per HPI. Absent: chest pain , palpitations, dyspnea on exertion, orthopnea, edema, cyanosis Rhythm: Present: regular rhythm Vascular: Absent: intermittent claudication, pedal edema - Respiratory Respiratory: Absent: cough, dyspnea, hemoptysis, dyspnea on exertion, wheezing, pain on inspiration, chest congestion, excessive phlegm production - Gastrointestinal Gastrointestinal: Absent: abdominal pain, change in bowel habits, hematemesis, melena - Musculoskeletal Musculoskeletal: Absent: abnormal gait, joint swelling - Neurological Neurological: Absent: abnormal gait, confusion, focal weakness, frequent falls, headache(s) [facility] Medical History Updates: Coronary artery disease. CABG 3. Cardiomyopathy with AICD. Hyperlipidemia. Hypertension. Cataracts Surgical History: CABG 3 vessels. AICD placement - Social History Smoking status: Current some day smoker Medications Home Medications Medication Instructions Recorded Confirmed Type Acetaminophen/Diphenhydramine 2 tab PO HS PRN #0 tab 12/06/14 11/02/17 History [Acetaminophen Pm Caplet] Atorvastatin Calcium 40 mg PO HS #0 tab 12/06/14 11/02/17 History Potassium Chloride 10 meq PO BIDBL #0 cap 12/06/14 11/02/17 History Carvedilol [Coreg] 25 mg PO BIDWM 08/07/17 11/02/17 History Dabigatran [Pradaxa] 150 mg PO BID 08/07/17 11/02/17 History Ferrous Sulfate 325 mg PO NOON 08/07/17 11/02/17 History Levothyroxine Tab [Synthroid] 100 mcg PO ACB 08/07/17 11/02/17 History SACUBITRIL/VALSARTAN 49/51mg 1 tab PO BIDBS 08/07/17 11/02/17 History [ENTRESTO 49/51mg] Furosemide [Lasix] 40 mg PO BID 11/02/17 11/02/17 History Allergies Allergy/AdvReac Type Severity Reaction Status Date / Time No Known Allergies Allergy Verified 11/02/17 20:00 Exam Vital signs: Temperature 98.0 F 11/03/17 08:00 Pulse Rate 64 11/03/17 08:00 Respiratory Rate 16 11/03/17 08:00 Blood Pressure 110/58 11/03/17 08:00 Pulse Oximetry 93 11/03/17 08:00 - Constitutional no acute distress, well nourished, well developed - Routine HEENT Exam Head: Present: normocephalic, atraumatic Eye: Present: EOMI, PERRL ENT: Present: mucous membranes dry - Routine Neck Exam Present: supple, full ROM. Absent: JVD - Routine Respiratory Exam Present: CTA bilaterally - Routine Cardiovascular Exam Present: RRR, S1, S2, murmur (mid-systolic murmur) - Routine Abdominal Exam Present: soft, non distended, non tender - Routine Neurological Exam Present: alert, oriented X3. Absent: sensory deficit, motor deficit Results 11/03/17 10:38 11/03/17 10:38 Cardiac Enzymes 11/03/17 11/03/17 Range/Units 08:09 10:38 AST 26 (17-59) U/L Troponin I < 0.012 (0-0.12) ng/ml CBC 11/03/17 Range/Units 10:38 WBC 8.7 (4.5-11.0) T/MM3 RBC 3.84 L (4.50-5.90) M/MM3 Hgb 12.7 L (13.5-17.5) GM/DL Hct 37.6 L (41-53) % Plt Count 286 (130-400) T/MM3 Comprehensive Metabolic Panel 11/03/17 Range/Units 10:38 Sodium 138 (134-144) MEQ/L Chloride 101 (98-107) MEQ/L Carbon Dioxide 26 (22-30) MEQ/L BUN 15.0 (9-20) MG/DL Glucose 105 (75-110) MG/DL Calcium 9.3 (8.4-10.2) MG/DL AST 26 (17-59) U/L ALT 23 (21-72) U/L Alkaline Phosphatase 91 (38-126) U/L Total Protein 7.3 (6.3-8.2) G/DL Albumin 4.5 (3.5-5.0) G/DL Intake and Output 11/02/17 11/03/17 11/03/17 22:59 06:59 14:59 Intake Total 360 / 360 Output Total 500 / 650 Balance -500 / -650 360 / 360 Intake: Oral 360 / 360 Output: Urine 500 / 650 Other: Weight 100.7 kg Patient Weight 11/04/17 06:59 Weight 100.7 kg - Imaging and Cardiology EKG results: image reviewed Hospital Course This is a general summary of the patient's hospital course. For more details refer to the complete medical record. Assessment and Plan - Assessment and Plan Syncope: No ventricular arrhythmias noted on device interrogation Suspect related to dehydration and hypotension exacerbated by diarrhea Check Echo Will reduce Coreg dose to 12.5mg and Entresto dose to 24/26mg Reduce Lasix to 40mg daily (appears euvolemic) Systolic Heart Failure, Chronic; Ischemic Cardiomyopathy: NYHA Class II Appears Euvolemic Reduce Coreg dose to 12.5mg and Entresto dose to 24/26mg Reduce Lasix to 40mg daily CAD: Continue ASA, Statin, Beta blockers History of Ventricular Arrhythmias, ICD discharge in 08/2017: No ventricular arrhythmias noted on device interrogation Continue Amiodarone home dose Mitral Regurgitation: Euvolemic Paroxysmal A Fib: Currently in NSR Continue Amiodarone and Coreg Continue Pradaxa HTN: Reduce Coreg dose to 12.5mg and Entresto dose to 24/26mg Dyslipidemia: Continue Statin DVT PPx: Pradaxa
[2017-11-03 12:36] VITALS: TEMP 98.1
--- NOTE | 2017-11-03 12:36 | Discharge Summary ---
Discharge Information Date of admission: 11/03/17 01:17 Anticipated date of discharge: 11/03/17 Attending Physician: Juan Antonio Ng MD Primary care physician: Nilsa Stone APRN - Discharge Diagnosis (1) Hypotension Status: Acute (2) Syncope Status: Acute - Laboratory Labs: 11/03/17 10:38 11/03/17 10:38 History of Present Illness HPI: Mr Bocanegra, is a 61 years old male with past medical history of HTN, known multi- vessel CAD, s/p CABG (Cath in 08/2017 showed Patent SILVERIO to LAD, occluded RCA, lt to rt collaterals, patent LCx, occluded Diag and diag graft), Ischemic cardiomyopathy (LVEF 30-35%), s/p BiV-ICD placement, Paroxysmal atrial fibrillation on manager intermediate chronic anticoagulation with Prdaxa; presented with an episode of syncope. Patient reports he finished his dinner, and felt somewhat dizzy, got up to go to bathroom and felt very lightheaded, and then passed out. Witnessed by , EMS arrived, and found to have significant hypotension, received IV NS 500ml in ambulance, brought to [facility]. In ER, had low BP, and received another bolus of NS 500ml. Patient reports that he had some diarrhea earlier yesterday. He felt very dehydrated yesterday. He took his evening meds, including Coreg 25mg, Entresto 49/52mg and Lasix 40mg an hour prior to the episode. He has had episode of syncope 2 months prior to presentation, but at the time, he had episodes of VT, and received two shocks. At that time he underwent coronary angiography which showed no acute coronary event, he was treated with Amiodarone, and currently is on PO Amiodarone. Reports he felt the shocks last time, but this time he just felt dizzy and lightheaded and dehydrated. Device interrogation shows no ventricular arrhythmias. Denies chest pain, SOB, palpitations, orthopnea, PND, peripheral edema. He reports otherwise he is fairly active, and can walk up to half a mile or so without getting SOB. Hospital Course This is a general summary of the patient's hospital course. For more details refer to the complete medical record. Time spent with patient: greater than 35 minutes DVT Prophylaxis: Pradaxa Exam Vital signs: Temperature 98.0 F 11/03/17 08:00 Pulse Rate 64 11/03/17 08:00 Respiratory Rate 16 11/03/17 08:00 Blood Pressure 110/58 11/03/17 08:00 Pulse Oximetry 93 11/03/17 08:00 - Constitutional no acute distress - Routine HEENT Exam Head: Present: atraumatic Eye: Present: EOMI ENT: Present: mucous membranes moist Nose: moist mucous membranes Throat: normal inspection - Routine Neck Exam Absent: JVD - Routine Respiratory Exam Present: CTA bilaterally - Routine Cardiovascular Exam Present: RRR - Routine Abdominal Exam Present: soft, normoactive bowel sounds - Routine Extremities Exam Present: no edema - Routine Skin Exam Present: intact, dry - Routine Neurological Exam Present: alert, oriented X3 - Routine Psychiatric Exam Present: normal affect Results 11/03/17 10:38 11/03/17 10:38 Cardiac Enzymes 11/03/17 11/03/17 Range/Units 08:09 10:38 AST 26 (17-59) U/L Troponin I < 0.012 (0-0.12) ng/ml CBC 11/03/17 Range/Units 10:38 WBC 8.7 (4.5-11.0) T/MM3 RBC 3.84 L (4.50-5.90) M/MM3 Hgb 12.7 L (13.5-17.5) GM/DL Hct 37.6 L (41-53) % Plt Count 286 (130-400) T/MM3 Comprehensive Metabolic Panel 11/03/17 Range/Units 10:38 Sodium 138 (134-144) MEQ/L Potassium 4.3 D (3.6-5) MEQ/L Chloride 101 (98-107) MEQ/L Carbon Dioxide 26 (22-30) MEQ/L BUN 15.0 (9-20) MG/DL Creatinine 1.0 D (0.8-1.5) MG/DL Glucose 105 (75-110) MG/DL Calcium 9.3 (8.4-10.2) MG/DL AST 26 (17-59) U/L ALT 23 (21-72) U/L Alkaline Phosphatase 91 (38-126) U/L Total Protein 7.3 (6.3-8.2) G/DL Albumin 4.5 (3.5-5.0) G/DL Intake and Output 12/11/03/17 11/03/17 22:59 06:59 14:59 Intake Total 360 / 360 Output Total 500 / 650 Balance -500 / -650 360 / 360 Intake: Oral 360 / 360 Output: Urine 500 / 650 Other: Weight 100.7 kg Patient Weight 11/04/17 06:59 Weight 100.7 kg - Imaging and Cardiology Echo: pending Cardiac cath: report reviewed - EKG Interpretation EKG: WNL EKG shows: sinus rhythm Discharge Plan - Med Rec/Dispo Referrals/Follow Up: Rinku Melo MD [Physician] - Prescriptions: New Furosemide [Lasix] 40 mg PO DAILY #30 tab SACUBITRIL/VALSARTAN 24/26mg [ENTRESTO 24/26mg] 1 tab PO BID #60 tab Carvedilol [Coreg] 12.5 mg PO BIDWM #60 tab Continue Spironolactone [Aldactone] 25 mg PO DAILY #30 tab Amiodarone [Pacerone] 200 mg PO BID #60 tab Atorvastatin Calcium 40 mg PO HS #0 tab Acetaminophen/Diphenhydramine [Acetaminophen Pm Caplet] 2 tab PO HS PRN #0 tab PRN Reason: INSOMNIA Levothyroxine Tab [Synthroid] 100 mcg PO ACB Dabigatran [Pradaxa] 150 mg PO BID Ferrous Sulfate 325 mg PO NOON Changed Potassium Chloride 20 meq PO DAILY #30 cap Discontinued SACUBITRIL/VALSARTAN 49/51mg [ENTRESTO 49/51mg] 1 tab PO BIDBS Carvedilol [Coreg] 25 mg PO BIDWM Furosemide [Lasix] 40 mg PO BID - Disposition 01 Discharged Home, Self-Care
[2017-11-03] MEDS: SPIRONOLACTONE 25 MG TABLET PO SCH ×2 (14:02→14:11)
[2017-11-03] MEDS: CARVEDILOL 12.5 MG TABLET PO SCH ×2 (14:03→14:10)
[2017-11-03] MEDS: FERROUS SULFATE 324 MG TABLET PO SCH ×2 (14:03→14:11)
[2017-11-03] MEDS: AMIODARONE 200 MG TABLET PO SCH ×2 (14:03→14:08)
[2017-11-03] MEDS: SACUBITRIL/VALSARTAN 24/26mg TABLET PO SCH ×2 (14:03→14:10)
[2017-11-03 16:16] VITALS: BP 129/69; PULSE 68; RESP 22; O2SAT 95
--- NOTE | 2017-11-03 17:30 | XRay Report ---
Indication: dizzy PROCEDURE: XR chest 1V: Encounter: Initial Comparison: August 08, 2017 Findings: The lungs are stable in appearance without new focal airspace consolidation. There is no pleural effusion or pneumothorax. The heart size, pulmonary vascularity and mediastinal contours are unchanged. Prior CABG with triple lead left pacemaker defibrillator. IMPRESSION: Stable appearance of the chest without acute cardiopulmonary disease. .
--- NOTE | 2017-11-03 17:33 | CT Scan Report ---
Indication: Dizzy PROCEDURE: CT head/brain wo con: Encounter: Initial Comparison: None Technique: Axial CT images through the head were performed without contrast. Iterative Reconstruction dose reducing technique was utilized. FINDINGS: The ventricles are of normal size, shape, and contour for the patient's age. The brainstem, cerebellum, and cerebral hemispheres have a normal morphology and CT attenuation. There is no evidence of midline displacement. No hemorrhage, signs of acute territorial stroke, mass effect, mass lesions, or edema is evident. Calcified left vertebral artery. Calcifications along the falx. The visualized portions of the skull base, midface, and calvarium demonstrate no abnormality. The paranasal sinuses are well aerated and free of significant disease. The tympanic and mastoid cavities appear normal. IMPRESSION: No acute intracranial abnormality or hemorrhage. There is a preliminary report by [facility]. .
[2017-11-03] MEDS ORDERED: ATORVASTATIN 40 MG TABLET PO SCH ×2 (21:00)
[2017-11-04] MEDS ORDERED: LEVOTHYROXINE 100 MCG TABLET PO SCH ×2 (06:30)
[2017-11-04] MEDS ORDERED: FUROSEMIDE 40 MG TABLET PO SCH (09:00)
--- NOTE | 2017-11-04 13:07 | Echocardiogram ---
DATE OF PROCEDURE November 03, 2017 This is a two-dimensional echo with spectral Doppler, color-flow and M-mode. It was obtained in a patient with congestive heart failure and hypotension. Left atrial dimension is normal. Left ventricular end-diastolic dimension is increased. LV systolic function is reduced with global hypokinesia with ejection fraction of about 25-30%. Right atrium is normal. Right ventricle is normal. Aortic root is dilated. Mitral valve is morphologically normal with trace of mitral regurgitation. Aortic valve appears to be normal. Tricuspid valve shows mild tricuspid regurgitation with normal estimated pulmonary artery systolic pressure of 29. Pulmonary valve shows no pulmonary insufficiency. There is no pericardial effusion. Device wires are seen in the right heart. IMPRESSION 1. Global hypokinesia with ejection fraction of about 25-30%. 2. Device wires are seen in the right heart. 3. Aortic root dilation at 4.1 cm. 4. Left ventricular dilation. 5. Mild tricuspid regurgitation with normal estimated pulmonary artery systolic pressure of 29. 6. Trace of mitral regurgitation. MTDD
== END 2017-11-03 15:58 | disposition home or self-care (01) ==
LOC: CCU 19:49 → ED 19:49 → CCU 22:00
PROVIDERS: ADMIT Internal Medicine Interventional Cardiology; ATTEND Internal Medicine Interventional Cardiology